=== PATIENT | female | born 1945 ===

== ENCOUNTER 2017-12-23 05:40 | Emergency (ER) | payer MEDICARE, MEDICAID ==
[2017-12-23] MEDS ORDERED: Sodium Chloride 0.9% 500 ML IV STA (06:17)
[2017-12-23] MEDS ORDERED: Iohexol 240 (50 ml) PO STA (06:17)
--- NOTE | 2017-12-23 06:17 | C.PDOC ---
History Of Present Illness <Berta Longo - Last Filed: 12/23/17 06:32> <Jada Leon - Last Filed: 12/23/17 10:13> 72 year old female presents to the ER with a complaint of 3 days of abdominal pain, vomiting, and bloody diarrhea, associated with subjective fever. Patient is currently on plavix, denies any antibiotic use. Denies chest pain, SOB, or dizziness. (Berta Longo) History Per: Patient History/Exam Limitations: no limitations Onset/Duration Of Symptoms: Days Current Symptoms Are (Timing): Still Present Location Of Pain/Discomfort: LUQ, LLQ Radiation Of Pain To:: None Quality Of Discomfort: Unable To Describe Associated Symptoms: Fever (Subjective), Vomiting, Diarrhea (Bloody) Exacerbating Factors: None Alleviating Factors: None Recent travel outside of the [place]: No Abnormal Vaginal Bleeding: No <Berta Longo - Last Filed: 12/23/17 06:32> <Jada Leon - Last Filed: 12/23/17 10:13> Time Seen by Provider: 12/23/17 06:16 Chief Complaint (Nursing): Abdominal Pain Past Medical History Reviewed: Historical Data, Nursing Documentation, Vital Signs - Medical History PMH: CAD, HTN, Hypercholesterolemia, Hypothyroidism, Pancreatitis (cirrhosis) Family History: States: Unknown Family Hx - Social History Hx Tobacco Use: No Hx Alcohol Use: No Hx Substance Use: No - Immunization History Hx Tetanus Toxoid Vaccination: No Hx Influenza Vaccination: Yes Hx Pneumococcal Vaccination: Yes (2015) <Berta Longo - Last Filed: 12/23/17 06:32> Vital Signs: Last Vital Signs Temp 97.8 F 12/23/17 09:42 Pulse 66 12/23/17 09:42 Resp 16 12/23/17 09:42 BP 116/65 12/23/17 09:42 Pulse Ox 98 12/23/17 09:42 - [facility] Procedures INFLUENZA VACCINATION (08/07/14) Review Of Systems Constitutional: Positive for: Fever (Subjective). Negative for: Chills Cardiovascular: Negative for: Chest Pain, Palpitations Respiratory: Negative for: Shortness of Breath Gastrointestinal: Positive for: Vomiting, Abdominal Pain, Diarrhea (Bloody) <Berta Longo - Last Filed: 12/23/17 06:32> Physical Exam - Physical Exam Appears: Non-toxic Skin: Normal Color, Warm, Dry Head: Atraumatic, Normacephalic Eye(s): bilateral: Normal Inspection Oral Mucosa: Moist Chest: Symmetrical, No Tenderness Cardiovascular: Rhythm Regular Respiratory: Normal Breath Sounds, No Rales, No Rhonchi, No Wheezing Gastrointestinal/Abdominal: Soft, Tenderness (LUQ, LLQ), No Guarding, No Rebound Rectal: Other (No stools, no blood) Neurological/Psych: Oriented x3, Normal Speech <Berta Longo - Last Filed: 12/23/17 06:32> ED Course And Treatment O2 Sat by Pulse Oximetry: 99 (Room air) Pulse Ox Interpretation: Normal Progress Note: CT abd/pel, blood work, urinalysis, and occult blood test ordered. Protonix, zofran, and IV fluids administered. <Berta Longo - Last Filed: 12/23/17 06:32> - Laboratory Results Result Diagrams: 12/23/17 06:34 12/23/17 06:34 Lab Interpretation: No Acute Changes - CT Scan/US CT abd.pelvis Other Rad Studies (CT/US): Radiology Report Reviewed CT/US Interpretation: [employer]ist : José Miguel Jimenez MD. Approver2 : Report Date : 12/23/2017 09:36:20. My Comment : . PROCEDURE: CT Abdomen and Pelvis without intravenous contrast. HISTORY: abd pain. COMPARISON: 2015. TECHNIQUE: Without contrast.. Contrast Dose: 0. Radiation dose: Total exam DLP = 935.05 mGy-cm. This CT exam was performed using one or more of the following dose reduction techniques: Automated exposure control, adjustment of the mA and/or kV according to patient size, and/or use of iterative reconstruction technique. FINDINGS: LOWER THORAX: Unremarkable. LIVER: Hepatomegaly. The liver measures 21.2 cm craniocaudal. Nodular contour suggestive of hepatic cirrhosis. Please correlate. No mass. No biliary dilatation. Solitary nodular calcification in the left hepatic lobe, likely granulomatous. GALLBLADDER AND BILE DUCTS: Unremarkable. PANCREAS: Unremarkable. No gross lesion or ductal dilatation. SPLEEN: Normal size. Nodular calcification consistent with old granulomatous disease. No mass. ADRENALS: Unremarkable. No mass. KIDNEYS AND URETERS: Two small adjacent calculi in lower pole right kidney, nonobstructing. These measure approximately 2-3 mm each in diameter. No left renal calculus. No renal mass. No hydronephrosis. VASCULATURE: Unremarkable. No aortic aneurysm. BOWEL: Sigmoid diverticulosis without evidence diverticulitis. No bowel obstruction. No other abnormal bowel loops are appreciated. APPENDIX: Unremarkable. Normal appendix. PERITONEUM: Unremarkable. No free fluid. No free air. LYMPH NODES: Unremarkable. No enlarged lymph nodes. BLADDER: Nondistended. REPRODUCTIVE : Unremarkable postmenopausal uterus. BONES: No acute fracture. Grade 1 anterolisthesis at L4-5 without spondylolysis. Likely degenerative in origin. Degenerative disc disease at L4-5. OTHER FINDINGS: None. IMPRESSION: No acute abnormality. 2 very small nonobstructing calculi in the lower pole right kidney. Sigmoid diverticulosis. Hepatomegaly and possible hepatic cirrhosis. Additional minor findings as above. Progress Note: Pt was sign out to me by Osiel. Blood work, CT abd/plevis w/ PO contrast- pending. Pt reports, came to Ed for evaluation of diffuse abodminal pain, nausea, few episodes of non-bilius/non-bloody vomiting and watery , non-bloody diarrhea 2-3 times dialy for past 3 days, (+) decrease appetite. Pt sts, noted some blood streak on stool. DEnies fever, chills, drooling, CP, SOB, dyspnea, diaphoresis, palpitation, melena, hematemesis, back pain, UTI sx. Pt was OBS in ED for 4.5 hours. On re-evaluation, pt resting comofrtably, not in any apparent distress. Pt reports, mild improvement in sx after ED treatment. Afebrile, hemodynamicaly stable. Non-toxic. Neck: SUpple , (-) JVD, (-) carotid bruits B/L. Lungs: CTA B/L, BS equal B/L. CVS: (+)S1S2 , reg. Abd: benign, (-) guardiong, (-) rebound. Back: (-) CVA tenderness. Blood work review and appears normal, no leukocytosis or left shift. BMP- no electolytes abnormalities. Guiac stool (-). UA- normal study. CT abd/pelvis w/ PO contrast review (+) diverticulosis w/o acute diverticulitis.. Results review and discussed with pt. Pt advised on course of ds, diet restriction. Pt has clinical findings c/w diffuse abd. pain, N/V/D r/o viral illness. Pt ref. to F/U with PMD, GI in 2 days for re-eavl. return to ED if any worsening or new changes. <Jada Leon - Last Filed: 12/23/17 10:13> Disposition - Disposition Disposition Time: 07:00 <Berta Longo - Last Filed: 12/23/17 06:32> Counseled Patient/Family Regarding: Studies Performed, Diagnosis, Need For Followup, Rx Given - Disposition Disposition Time: 10:10 <Jada Leon - Last Filed: 12/23/17 10:13> - Disposition Referrals: Geovany Merida [Staff Provider] - Disposition: HOME/ ROUTINE Condition: STABLE Additional Instructions: Encourage fluids Take medication as prescribed Follow up with PMD and GI in 2 days for re-evaluation without fail. return to ED if any worsening or new changes. Prescriptions: Ciprofloxacin [Cipro] 1 tab PO BID #14 tab metroNIDAZOLE [Flagyl] 500 mg PO BID #14 tab Ondansetron ODT [Zofran ODT] 1 odt PO BID PRN #8 odt PRN Reason: Nausea/Vomiting Instructions: Stomach Ache and Stomach Upset, Nausea and Vomiting, Adult (DC) Forms: [employer] (Vietnamese) Print Language: FAROESE - Clinical Impression Clinical Impression: Nausea, Vomiting, Abdominal pain - PA / [facility] / Resident Statement MD/DO has reviewed & agrees with the documentation as recorded. - Scribe Statement The provider has reviewed the documentation as recorded by the Scribe <Berta Longo - Last Filed: 12/23/17 06:32> <Jada Leon - Last Filed: 12/23/17 10:13> - Scribe Statement Mekhi Harrington All medical record entries made by the Scribe were at my direction and personally dictated by me. I have reviewed the chart and agree that the record accurately reflects my personal performance of the history, physical exam, medical decision making, and the department course for this patient. I have also personally directed, reviewed, and agree with the discharge instructions and disposition. (Berta Longo) Physician Patient Turnover Patient Signed Over To: Jada Leon Handoff Comments: Pending labs, CT, dispo <Berta Longo - Last Filed: 12/23/17 06:32>
[2017-12-23] MEDS ORDERED: Iohexol 240 (50 ml) ONE (06:28)
[2017-12-23] MEDS ORDERED: Sodium Chloride 0.9% 1,000 ML ONE (06:29)
[2017-12-23 06:40] LABS: INR 1.1
[2017-12-23 06:41] LABS: BASO % 0.4 % (0.0-2.0); EOS # 0.2 K/uL (0.0-0.7); EOS % 2.2 % (0.0-4.0); HEMOGLOBIN 12.8 g/dL (11.0-16.0); LYMPH # 3.2 K/uL (1.0-4.3); LYMPH % 35.3 % (20.0-40.0); MEAN CORPUSCULAR HEMOGLOBIN 29.4 pg (27.0-31.0); MEAN CORPUSCULAR HGB CONC 34.2 g/dL (33.0-37.0); MEAN PLATELET VOLUME 11.8 fL (7.2-11.7); MONO # 0.5 K/uL (0.0-0.8); MONO % 5.4 % (0.0-10.0); NEUT # 5.2 K/uL (1.8-7.0); NEUT % 56.7 % (50.0-75.0); NRBC % 0.1 % (0.0-2.0); RBC 4.37 Mil/uL (3.80-5.20); RED CELL DISTRIBUTION WIDTH 13.5 % (11.5-14.5); WHITE BLOOD COUNT 9.2 K/uL (4.8-10.8)
[2017-12-23 06:45] LABS: ALB/GLOB RATIO 1.4 (1.0-2.1); ALBUMIN 3.9 g/dL (3.5-5.0); ALT/SGPT 75 U/L (9-52); AST/SGOT 62 U/L (14-36); BLOOD UREA NITROGEN 14 mg/dL (7-17); CALCIUM 8.8 mg/dl (8.6-10.4); GFR AFRICAN-AMERICAN > 60; GFR NON-AFRICAN AMERICAN > 60; LIPASE 64 U/L (23-300)
[2017-12-23 08:36] LABS: SQUAMOUS EPITHIAL < 1 /hpf (0-5); URINE BACTERIA RARE (<OCC); URINE BILIRUBIN NEGATIVE (NEGATIVE); URINE BLOOD 1+ (NEGATIVE); URINE CLARITY Clear (Clear); URINE COLOR Colorless (YELLOW); URINE GLUCOSE (UA) NORMAL (Normal); URINE LEUKOCYTE ESTERASE NEG Leu/uL (Negative); URINE PROTEIN NEGATIVE (NEGATIVE); URINE UROBILINOGEN NORMAL mg/dL (0.2-1.0)
--- NOTE | 2017-12-23 09:37 | CT ---
PROCEDURE: CT Abdomen and Pelvis without intravenous contrast HISTORY: abd pain COMPARISON: 08/21/2016 TECHNIQUE: Without contrast.. Contrast Dose: 0 Radiation dose: Total exam DLP = 935.05 mGy-cm. This CT exam was performed using one or more of the following dose reduction techniques: Automated exposure control, adjustment of the mA and/or kV according to patient size, and/or use of iterative reconstruction technique. FINDINGS: LOWER THORAX: Unremarkable. LIVER: Hepatomegaly. The liver measures 21.2 cm craniocaudal. Nodular contour suggestive of hepatic cirrhosis. Please correlate. No mass. No biliary dilatation. Solitary nodular calcification in the left hepatic lobe, likely granulomatous. GALLBLADDER AND BILE DUCTS: Unremarkable. PANCREAS: Unremarkable. No gross lesion or ductal dilatation. SPLEEN: Normal size. Nodular calcification consistent with old granulomatous disease. No mass. ADRENALS: Unremarkable. No mass. KIDNEYS AND URETERS: Two small adjacent calculi in lower pole right kidney, nonobstructing. These measure approximately 2-3 mm each in diameter. No left renal calculus. No renal mass. No hydronephrosis. VASCULATURE: Unremarkable. No aortic aneurysm. BOWEL: Sigmoid diverticulosis without evidence diverticulitis. No bowel obstruction. No other abnormal bowel loops are appreciated. APPENDIX: Unremarkable. Normal appendix. PERITONEUM: Unremarkable. No free fluid. No free air. LYMPH NODES: Unremarkable. No enlarged lymph nodes. BLADDER: Nondistended REPRODUCTIVE: Unremarkable postmenopausal uterus BONES: No acute fracture. Grade 1 anterolisthesis at L4-5 without spondylolysis. Likely degenerative in origin. Degenerative disc disease at L4-5 OTHER FINDINGS: None. IMPRESSION: No acute abnormality. 2 very small nonobstructing calculi in the lower pole right kidney. Sigmoid diverticulosis. Hepatomegaly and possible hepatic cirrhosis. Additional minor findings as above.
[2017-12-23 09:43] VITALS: RESP 16; TEMP 97.8; O2SAT 98
[2017-12-23 11:01] VITALS: BP 126/64; PULSE 68
== END 2017-12-23 11:30 | disposition home or self-care (01) ==
LOC: C.ER 05:40
DX: R10.12 Left upper quadrant pain (principal); R10.32 Left lower quadrant pain; R11.2 Nausea with vomiting, unspecified
CPT/HCPCS: 74176; 80053; 81001; 83690; 85025; 85610; 85730; 96361; 96374; 96375; 96376; 99285; C9113; G0328; J1885; J2405; J7040; Q9966

== ENCOUNTER 2018-03-01 14:20 | Emergency (ER) | payer MEDICARE, MEDICAID ==
[2018-03-01 14:40] VITALS: O2SAT 96
[2018-03-01] MEDS ORDERED: Sodium Chloride 0.9% 1,000 ML IV ONE (14:57)
[2018-03-01 15:12] LABS: BASO % 0.4 % (0.0-2.0); EOS # 0.1 K/uL (0.0-0.7); EOS % 1.7 % (0.0-4.0); HEMOGLOBIN 12.5 g/dL (11.0-16.0); LYMPH # 2.4 K/uL (1.0-4.3); LYMPH % 29.3 % (20.0-40.0); MEAN CELL VOLUME 85.5 fL (81.0-99.0); MEAN CORPUSCULAR HEMOGLOBIN 28.8 pg (27.0-31.0); MEAN CORPUSCULAR HGB CONC 33.7 g/dL (33.0-37.0); MEAN PLATELET VOLUME 11.3 fL (7.2-11.7); MONO # 0.5 K/uL (0.0-0.8); MONO % 5.6 % (0.0-10.0); NEUT # 5.2 K/uL (1.8-7.0); RBC 4.33 Mil/uL (3.80-5.20); RED CELL DISTRIBUTION WIDTH 13.3 % (11.5-14.5); WHITE BLOOD COUNT 8.3 K/uL (4.8-10.8)
[2018-03-01] MEDS ORDERED: Sodium Chloride 0.9% 1,000 ML ONE (15:14)
--- NOTE | 2018-03-01 15:24 | C.PDOC ---
History Of Present Illness 72 y/o female presents to the ED complaining of crampy left epigastric pain for 3 days. Patient has had many presentations to this ED for the same. No associated fevers, vomiting, or diarrhea. She denies taking any medications at home for symptom relief. Time Seen by Provider: 03/01/18 14:51 Chief Complaint (Nursing): Abdominal Pain History Per: Patient History/Exam Limitations: no limitations Onset/Duration Of Symptoms: Days Current Symptoms Are (Timing): Still Present Past Medical History Reviewed: Historical Data, Nursing Documentation, Vital Signs Vital Signs: Last Vital Signs Temp 98.1 F 03/01/18 14:38 Pulse 71 03/01/18 14:38 Resp 20 03/01/18 14:38 BP 107/56 L 03/01/18 14:38 Pulse Ox 96 03/01/18 15:27 - Medical History PMH: CAD, HTN, Hypercholesterolemia, Hypothyroidism, Pancreatitis (cirrhosis) Denies: Chronic Kidney Disease Surgical History: No Surg Hx - [facility] Procedures INFLUENZA VACCINATION (08/07/14) Family History: States: Unknown Family Hx - Social History Hx Tobacco Use: No Hx Alcohol Use: No Hx Substance Use: No - Immunization History Hx Tetanus Toxoid Vaccination: No Hx Influenza Vaccination: Yes Hx Pneumococcal Vaccination: Yes (2016) Review Of Systems Except As Marked, All Systems Reviewed And Found Negative. Constitutional: Negative for: Fever, Chills Gastrointestinal: Positive for: Abdominal Pain. Negative for: Vomiting, Diarrhea Physical Exam - Physical Exam Appears: Non-toxic, No Acute Distress Skin: Normal Color, Warm, Dry Head: Atraumatic, Normacephalic Eye(s): bilateral: Normal Inspection, PERRL, EOMI Oral Mucosa: Moist Neck: Normal ROM, Supple Cardiovascular: Rhythm Regular, No Murmur Respiratory: Normal Breath Sounds, No Rales, No Rhonchi, No Wheezing Gastrointestinal/Abdominal: Bowel Sounds (Dull to percussion at the LUQ), Soft, Tenderness (to epigastrium) Extremity: Bilateral: Atraumatic, No Pedal Edema, Normal Color And Temperature Neurological/Psych: Oriented x3, Normal Speech, Other (No focal deficits) ED Course And Treatment - Laboratory Results Result Diagrams: 03/01/18 15:07 03/01/18 15:07 Lab Interpretation: Normal (trop neg) ECG: Interpreted By Me ECG Rhythm: Sinus Rhythm ECG Interpretation: Normal Rate From EC O2 Sat by Pulse Oximetry: 96 (RA) Pulse Ox Interpretation: Normal - Radiology CXR: Interpreted by Me CXR Interpretation: Yes: No Acute Disease - Other Rad abd x 2 X-Ray: Interpreted by Me (+FOS) Medical Decision Making Medical Decision Making: Time: 14:57 Initial Plan: --EKG --CMP --Lipase --Troponin I --CBC --X-ray obstructive series --Urinalysis --IV fluids --30 mg Toradol IVP chronic constipation NO atypical NV- epigastric discomfort and normal EKG with neg trop Disposition Doctor Will See Patient In The: Office Counseled Patient/Family Regarding: Studies Performed, Diagnosis - Disposition Disposition: HOME/ ROUTINE Disposition Time: 15:50 Condition: GOOD Forms: [employer] (Malian) - Clinical Impression Clinical Impression: Colicky LUQ abdominal pain - Scribe Statement The provider has reviewed the documentation as recorded by the Christineibomar Parker Provider Attestation: All medical record entries made by the Christineibomar were at my direction and personally dictated by me. I have reviewed the chart and agree that the record accurately reflects my personal performance of the history, physical exam, medical decision making, and the department course for this patient. I have also personally directed, reviewed, and agree with the discharge instructions and disposition.
[2018-03-01 15:27] LABS: ALB/GLOB RATIO 1.1 (1.0-2.1); ALBUMIN 3.8 g/dL (3.5-5.0); ALT/SGPT 104 U/L (9-52); AST/SGOT 173 U/L (14-36); BLOOD UREA NITROGEN 27 mg/dL (7-17); CALCIUM 9.2 mg/dl (8.6-10.4); GFR AFRICAN-AMERICAN 59; GFR NON-AFRICAN AMERICAN 49; LIPASE 92 U/L (23-300)
[2018-03-01 16:09] VITALS: BP 110/66; PULSE 66; RESP 18; TEMP 97.7
--- NOTE | 2018-03-01 19:05 | RAD ---
PROCEDURE: Radiographs of the chest and abdomen (obstructive series) HISTORY: abd pain COMPARISON: No prior. TECHNIQUE: AP radiograph of the chest, with upright and supine radiographs of the abdomen. FINDINGS: CHEST: Lungs: Clear. Cardiovascular: Mild cardiomegaly not excluded. No pulmonary vascular derangement evident. Pleura: No pleural fluid. No pneumothorax. Other findings: None. ABDOMEN AND PELVIS: Bowel: Unremarkable bowel gas pattern. No evidence of mechanical obstruction. Free air: None. Bones: Unremarkable. Other findings: Punctate calcifications seen over the overlying the left psoas muscle inferiorly of uncertain origin. IMPRESSION: No mechanical bowel obstruction appreciable. Small calcifications seen overlying the inferior margins of the left psoas muscle of uncertain origin. No definite free intraperitoneal gas.
--- NOTE | 2018-03-03 02:56 | CARD ---
APPROVED REPORT EKG Measurement Heart [id number] [place] [id number] <Conclusion> Normal sinus rhythm Normal ECG
== END 2018-03-01 16:40 | disposition home or self-care (01) ==
LOC: C.ER 14:20
DX: R10.12 Left upper quadrant pain (principal); R10.84 Generalized abdominal pain; E03.9 Hypothyroidism, unspecified; E78.00 Pure hypercholesterolemia, unspecified; I10 Essential (primary) hypertension; I25.10 Atherosclerotic heart disease of native coronary artery without angina pectoris
CPT/HCPCS: 74022; 80053; 83690; 84484; 85025; 93005; 96361; 96374; 99283; J1885; J7040

== ENCOUNTER 2018-04-23 11:04 | Emergency (ER) | payer MEDICARE, MEDICAID ==
[2018-04-23 12:24] LABS: BASO # 0.1 K/uL (0.0-0.2); BASO % 0.7 % (0.0-2.0); EOS # 0.3 K/uL (0.0-0.7); EOS % 3.3 % (0.0-4.0); HEMOGLOBIN 12.7 g/dL (11.0-16.0); LYMPH # 2.8 K/uL (1.0-4.3); MEAN CELL VOLUME 83.9 fL (81.0-99.0); MEAN CORPUSCULAR HEMOGLOBIN 28.7 pg (27.0-31.0); MEAN CORPUSCULAR HGB CONC 34.2 g/dL (33.0-37.0); MEAN PLATELET VOLUME 11.4 fL (7.2-11.7); MONO # 0.5 K/uL (0.0-0.8); MONO % 6.6 % (0.0-10.0); NEUT # 4.1 K/uL (1.8-7.0); NEUT % 53.4 % (50.0-75.0); NRBC % 0.1 % (0.0-2.0); RBC 4.41 Mil/uL (3.80-5.20); RED CELL DISTRIBUTION WIDTH 13.9 % (11.5-14.5); WHITE BLOOD COUNT 7.8 K/uL (4.8-10.8)
[2018-04-23 12:27] LABS: URINE BILIRUBIN NEGATIVE (NEGATIVE); URINE CLARITY Clear (Clear); URINE COLOR Yellow (YELLOW); URINE GLUCOSE (UA) NORMAL (Normal); URINE LEUKOCYTE ESTERASE NEG Leu/uL (Negative); URINE PROTEIN NEGATIVE (NEGATIVE); URINE UROBILINOGEN NORMAL mg/dL (0.2-1.0)
[2018-04-23 12:31] LABS: INR 1.1; PROTHROMBIN TIME 12.4 SECONDS (9.7-12.2)
[2018-04-23 12:34] LABS: URINE BLOOD NEGATIVE (NEGATIVE)
[2018-04-23 12:40] LABS: ALB/GLOB RATIO 1.4 (1.0-2.1); ALBUMIN 4.2 g/dL (3.5-5.0); ALT/SGPT 59 U/L (9-52); AST/SGOT 77 U/L (14-36); BLOOD UREA NITROGEN 16 mg/dL (7-17); CALCIUM 9.8 mg/dl (8.6-10.4); GFR AFRICAN-AMERICAN > 60; GFR NON-AFRICAN AMERICAN > 60
[2018-04-23 12:53] LABS: B-TYPE NATRIURETIC PEPTIDE 85.9 pg/mL (0-900)
--- NOTE | 2018-04-23 12:53 | RAD ---
Date of service: 04/23/2018 PROCEDURE: CHEST RADIOGRAPH, 1 VIEW HISTORY: SOB COMPARISON: 03/22/2017 FINDINGS: LUNGS: Clear. PLEURA: No pneumothorax or pleural fluid seen. CARDIOVASCULAR: Normal. OSSEOUS STRUCTURES: No significant abnormalities. VISUALIZED UPPER ABDOMEN: Normal. OTHER FINDINGS: None. IMPRESSION: No active disease.
--- NOTE | 2018-04-23 13:13 | C.PDOC ---
History Of Present Illness 72 year old female presents to the ER with a complaint of abdominal distention for the past 8 days, associated with nausea, vomiting, generalized weakness, and leg cramping/swelling. Denies diarrhea, chest pain, or SOB. Time Seen by Provider: 04/23/18 11:45 Chief Complaint (Nursing): Abdominal Pain History Per: Patient History/Exam Limitations: no limitations Onset/Duration Of Symptoms: Days Current Symptoms Are (Timing): Still Present Radiation Of Pain To:: None Quality Of Discomfort: Unable To Describe Associated Symptoms: denies: Diarrhea, Chest Pain, Other (SOB) Exacerbating Factors: None Alleviating Factors: None Recent travel outside of the [place]: No Abnormal Vaginal Bleeding: No Past Medical History Reviewed: Historical Data, Nursing Documentation, Vital Signs Vital Signs: Last Vital Signs Temp 98.2 F 04/23/18 11:18 Pulse 75 04/23/18 11:18 Resp 18 04/23/18 11:18 BP 123/70 04/23/18 11:18 Pulse Ox 98 04/23/18 15:20 - Medical History PMH: CAD, HTN, Hypercholesterolemia, Hypothyroidism, Pancreatitis (cirrhosis) - [facility] Procedures INFLUENZA VACCINATION (08/07/14) Family History: States: Unknown Family Hx - Social History Hx Tobacco Use: No Hx Alcohol Use: No Hx Substance Use: No - Immunization History Hx Tetanus Toxoid Vaccination: No Hx Influenza Vaccination: Yes Hx Pneumococcal Vaccination: Yes (2016) Review Of Systems Except As Marked, All Systems Reviewed And Found Negative. Gastrointestinal: Positive for: Other (Abdominal distention) Physical Exam - Physical Exam Appears: Non-toxic Skin: Normal Color, Warm, Dry Head: Atraumatic, Normacephalic Eye(s): bilateral: Normal Inspection Oral Mucosa: Moist Neck: Normal, Supple Chest: Symmetrical, No Tenderness Cardiovascular: Rhythm Regular Respiratory: Normal Breath Sounds, No Rales, No Rhonchi, No Wheezing Gastrointestinal/Abdominal: Bowel Sounds (Positive), Soft, No Tenderness, Distention (Not tense) Extremity: Pedal Edema (+1 pitting) Neurological/Psych: Oriented x3, Normal Speech ED Course And Treatment - Laboratory Results Result Diagrams: 04/23/18 12:18 04/23/18 12:18 O2 Sat by Pulse Oximetry: 98 (Room air) Pulse Ox Interpretation: Normal Medical Decision Making Medical Decision Making: Assessment: Abdominal distention Plan: * CT abd/pel * Blood work * CXR * Urinalysis * Zofran * Doppler Work up including US was negative, results discussed with patient. Advised patient to follow up with her GI and PMD in 2 days. Disposition Counseled Patient/Family Regarding: Studies Performed, Diagnosis, Need For Followup, Rx Given - Disposition Referrals: Lon Linares MD [Staff Provider] - Geovany Merida [Staff Provider] - Disposition: HOME/ ROUTINE Disposition Time: 15:17 Condition: STABLE Additional Instructions: you need to see both your doctor within 2 days call today to make an appointment continue you home medications return to ER if symptoms worsens or progress Prescriptions: Famotidine [Pepcid] 20 mg PO BID #20 tab Naproxen [Naprosyn] 500 mg PO BID PRN #16 tab PRN Reason: Pain, Moderate (4-7) Ondansetron ODT [Zofran ODT] 4 mg PO TID PRN #12 odt PRN Reason: Nausea/Vomiting Instructions: Acute Abdomen (Belly Pain), Adult (DC) Forms: [employer] (German), Gen Discharge Inst German Print Language: ARMENIAN - Clinical Impression Clinical Impression: Abdominal pain - Scribe Statement The provider has reviewed the documentation as recorded by the Scribomar Harrington All medical record entries made by the Scribe were at my direction and personally dictated by me. I have reviewed the chart and agree that the record accurately reflects my personal performance of the history, physical exam, medical decision making, and the department course for this patient. I have also personally directed, reviewed, and agree with the discharge instructions and disposition.
[2018-04-23] MEDS ORDERED: Iodixanol 320 MG/ML 100 ML BOTTLE IV ONE (13:38)
--- NOTE | 2018-04-23 14:32 | CT ---
Date of service: 04/23/2018 PROCEDURE: CT Abdomen and Pelvis with contrast HISTORY: abd. distention COMPARISON: CT scan of the abdomen pelvis dated 12/23/2017. TECHNIQUE: Contrast dose: 100 mL Visipaque 320 Radiation dose: Total exam DLP = 975.6 mGy-cm. This CT exam was performed using one or more of the following dose reduction techniques: Automated exposure control, adjustment of the mA and/or kV according to patient size, and/or use of iterative reconstruction technique. FINDINGS: LOWER THORAX: Cardiomegaly. No focal consolidation or pleural effusion. Stable 3 mm medial right lower lobe nodule. LIVER: Hepatic steatosis. Tiny too small to characterize right hepatic lobe hypodensities (series 3, images 37 and 47). Questionable nodular contour. Punctate calcified granuloma. No ductal dilatation. GALLBLADDER AND BILE DUCTS: Unremarkable. PANCREAS: Fatty replacement. No gross lesion or ductal dilatation. SPLEEN: Unremarkable. Punctate calcified granuloma. ADRENALS: Unremarkable. No mass. KIDNEYS AND URETERS: Nonobstructive punctate right lower lobe calculus. No hydronephrosis. No solid mass. VASCULATURE: Calcific atherosclerosis. No aortic aneurysm. BOWEL: Colonic diverticulosis. No obstruction. No gross mural thickening. APPENDIX: Normal appendix. PERITONEUM: Tiny fat containing umbilical hernia. No free fluid. No free air. LYMPH NODES: Unremarkable. No enlarged lymph nodes. BLADDER: Unremarkable. REPRODUCTIVE: Unremarkable. BONES: No acute fracture. Multilevel degenerative changes. Grade 1 anterolisthesis of L4 on L5. OTHER FINDINGS: None. IMPRESSION: No acute abdominal pelvic pathology. Multiple stable findings as above.
[2018-04-23 15:37] VITALS: BP 105/52; PULSE 70; RESP 20; TEMP 98.6; O2SAT 97
--- NOTE | 2018-04-24 17:49 | CARD ---
APPROVED REPORT Date of service: 04/23/2018 EKG Measurement Heart [id number] NM 110P [id number] <Conclusion> Sinus rhythm with short NM Otherwise normal ECG
--- NOTE | 2018-04-25 11:00 | VASCLAB ---
Date of service: 04/23/2018 PROCEDURE: Lower Extremity Venous Duplex Exam. HISTORY: leg pain PRIORS: None. TECHNIQUE: Bilateral common femoral, femoral, popliteal and posterior tibial, peroneal and great saphenous veins were evaluated. Flow was assessed with color Doppler, compressibility, assessment of phasic flow and augmentation response. Report prepared by Mekhi Cope, DEXTER, RVT FINDINGS: RIGHT: 1. Common Femoral Vein: 1.1. Compressibility - Fully compressible: Thrombus - None : Flow - Phasic: Augmentation -Normal: Reflux - None. 2. Femoral Vein: 2.1. Compressibility - Fully compressible: Thrombus - None : Flow - Phasic: Augmentation -Normal: Reflux - None. 3. Popliteal Vein: 3.1. Compressibility - Fully compressible: Thrombus - None : Flow - Phasic: Augmentation -Normal: Reflux - Yes. 4. Posterior Tibial Vein: 4.1. Compressibility - Fully compressible: Thrombus - None: Flow - Phasic: Augmentation -Normal: Reflux - None. 5. Peroneal Vein: 5.1. Compressibility - Fully compressible: Thrombus - None: Flow - Phasic: Augmentation -Normal: Reflux - Yes. 6. Great Saphenous Vein: 6.1. Compressibility - Fully compressible: Thrombus - None: Flow - Phasic: Augmentation - Normal: Reflux - None. LEFT: 1. Common Femoral Vein: 1.1. Compressibility - Fully compressible: Thrombus - None: Flow - Phasic: Augmentation -Normal: Reflux - None. 2. Femoral Vein: 2.1. Compressibility - Fully compressible: Thrombus - None: Flow - Phasic: Augmentation -Normal: Reflux - None. 3. Popliteal Vein: 3.1. Compressibility - Fully compressible: Thrombus - None : Flow - Phasic: Augmentation -Normal: Reflux - Yes. 4. Posterior Tibial Vein: 4.1. Compressibility - Fully compressible: Thrombus - None: Flow - Phasic: Augmentation -Normal: Reflux - None. 5. Peroneal Vein: 5.1. Compressibility - Fully compressible: Thrombus - None: Flow - Phasic: Augmentation -Normal: Reflux - None. 6. Great Saphenous Vein: 6.1. Compressibility - Fully compressible: Thrombus - None: Flow - Phasic: Augmentation - Normal: Reflux - None. OTHER FINDINGS: Right: None significant. Left: None significant. IMPRESSION: Right: No evidence of deep or superficial vein thrombosis of the right lower extremity. Valvular incompetence of the right popliteal and peroneal veins. Left: No evidence of deep or superficial vein thrombosis of the left lower extremity.
== END 2018-04-23 15:42 | disposition home or self-care (01) ==
LOC: C.ER 11:04
DX: R10.9 Unspecified abdominal pain (principal)
CPT/HCPCS: 71045; 74177; 80053; 81001; 83880; 84484; 85025; 85610; 85730; 93005; 93970; 96374; 99285; J2405; Q9967

== ENCOUNTER 2018-05-27 08:16 | Observation (INO) | payer MEDICARE, MEDICAID ==
[2018-05-27 08:31] VITALS: BMI 30.2
--- NOTE | 2018-05-27 09:25 | C.PDOC ---
History Of Present Illness 72 y/o female presents to ED for complaints of shortness of breath associated with generalized weakness and chest pain that radiates to left hands that began 2 weeks ago. Patient states symptoms were sudden onset. Denies seeing her PMD, medication use for relief, smoking, or any other physical complaints. Patient has PMHx of CAD, HTN and Thyroid. PMD: Dr Ronnie Ospina - [facility] Time Seen by Provider: 05/27/18 08:34 Chief Complaint (Nursing): Shortness Of Breath History Per: Patient History/Exam Limitations: no limitations Onset/Duration Of Symptoms: Days (14) Current Symptoms Are (Timing): Still Present Current Respiratory Medications: See Home Med List Associated Symptoms: Chest Pain. denies: Fever, Chills Recent travel outside of the [place]: No Past Medical History Reviewed: Historical Data, Nursing Documentation, Vital Signs Vital Signs: Last Vital Signs Temp 97.3 F L 05/27/18 08:24 Pulse 79 05/27/18 08:24 Resp 18 05/27/18 08:30 BP 131/75 05/27/18 08:24 Pulse Ox 99 05/27/18 10:30 - Medical History PMH: CAD, Gall Bladder Disease, HTN, Hypercholesterolemia, Hypothyroidism, Pancreatitis (cirrhosis) - [facility] Procedures INFLUENZA VACCINATION (08/07/14) Family History: States: Unknown Family Hx - Social History Hx Tobacco Use: No Hx Alcohol Use: No Hx Substance Use: No - Immunization History Hx Tetanus Toxoid Vaccination: No Hx Influenza Vaccination: No Hx Pneumococcal Vaccination: No Review Of Systems Constitutional: Positive for: Weakness. Negative for: Fever, Chills Cardiovascular: Positive for: Chest Pain (RAdiated to left hands ). Negative for: Palpitations Respiratory: Positive for: Shortness of Breath. Negative for: Cough Gastrointestinal: Negative for: Nausea, Vomiting, Abdominal Pain, Diarrhea Skin: Negative for: Rash Neurological: Negative for: Weakness, Numbness Physical Exam - Physical Exam Appears: Non-toxic, In Acute Distress (Mild), Other (Uncomfortable ) Skin: Normal Color, Warm, Dry, No Rash Head: Atraumatic, Normacephalic Eye(s): bilateral: Normal Inspection, PERRL, EOMI Oral Mucosa: Moist Throat: Normal, No Erythema, No Exudate, No Drooling, No Mass Neck: Supple Chest: Symmetrical, No Tenderness Cardiovascular: Rhythm Regular, No Murmur Respiratory: Normal Breath Sounds, No Decreased Breath Sounds, No Rales, No Rhonchi, No Wheezing, Other (Mild Respiratory ) Gastrointestinal/Abdominal: Normal Exam, Soft, No Tenderness, No Distention Extremity: Normal ROM, No Tenderness, No Pedal Edema, No Deformity Extremity: Bilateral: Atraumatic, Normal Color And Temperature, Normal ROM Pulses: Left Dorsalis Pedis: Normal, Right Dorsalis Pedis: Normal Neurological/Psych: Oriented x3, Normal Speech (Speaking in full sentences ), Other (No focal deficits ) Gait: Steady ED Course And Treatment - Laboratory Results Result Diagrams: 05/27/18 09:18 05/27/18 09:18 ECG: Interpreted By Me (Dr Smith), Viewed By Me ECG Rhythm: Sinus Rhythm Rate From EC O2 Sat by Pulse Oximetry: 99 (RA) Pulse Ox Interpretation: Normal - Other Rad CXR X-Ray: Viewed By Me, Read By Radiologist Interpretation: Chest x-ray single frontal view. History: Shortness of breath. Comparison: 04/23/2018. Findings: Biapical pleural thickening with upper lobe granulomatous changes. Diffuse increased interstitial lung markings. Cardiomegaly. Enlarged ectatic aorta. Nodular density at the right lung base medially. Clinical correlation. Degenerative changes in the spine and shoulders. Impression: Biapical pleural thickening with upper lobe granulomatous changes. Diffuse increased interstitial lung markings. Cardiomegaly. Enlarged ectatic aorta. Nodular density at the right lung base medially. Clinical correlation. Progress Note: Ordered blood work, CXR, and urinalysis. 10:20AM -Case discussed with Dr. Olsen and agreed for admission. Disposition - Disposition - PA / BRAILLE CODER / Resident Statement MD/DO has reviewed & agrees with the documentation as recorded. - Scribe Statement The provider has reviewed the documentation as recorded by the Christineibomar Prakash All medical record entries made by the Christineibomar were at my direction and personally dictated by me. I have reviewed the chart and agree that the record accurately reflects my personal performance of the history, physical exam, medical decision making, and the department course for this patient. I have also personally directed, reviewed, and agree with the discharge instructions and disposition.
[2018-05-27 09:26] LABS: BASO % 0.4 % (0.0-2.0); EOS # 0.1 K/uL (0.0-0.7); EOS % 1.8 % (0.0-4.0); HEMOGLOBIN 12.2 g/dL (11.0-16.0); LYMPH # 2.5 K/uL (1.0-4.3); LYMPH % 34.5 % (20.0-40.0); MEAN CELL VOLUME 84.5 fL (81.0-99.0); MEAN CORPUSCULAR HEMOGLOBIN 28.4 pg (27.0-31.0); MEAN CORPUSCULAR HGB CONC 33.6 g/dL (33.0-37.0); MEAN PLATELET VOLUME 10.9 fL (7.2-11.7); MONO # 0.4 K/uL (0.0-0.8); MONO % 5.7 % (0.0-10.0); NEUT # 4.2 K/uL (1.8-7.0); NEUT % 57.6 % (50.0-75.0); RBC 4.31 Mil/uL (3.80-5.20); RED CELL DISTRIBUTION WIDTH 14.1 % (11.5-14.5); WHITE BLOOD COUNT 7.3 K/uL (4.8-10.8)
[2018-05-27 09:40] LABS: ALB/GLOB RATIO 1.2 (1.0-2.1); ALBUMIN 4.1 g/dL (3.5-5.0); ALT/SGPT 63 U/L (9-52); AST/SGOT 82 U/L (14-36); BLOOD UREA NITROGEN 11 mg/dL (7-17); CALCIUM 9.8 mg/dl (8.6-10.4); GFR AFRICAN-AMERICAN > 60; GFR NON-AFRICAN AMERICAN > 60
[2018-05-27 09:43] LABS: INR 1.1; PARTIAL THROMBOPLASTIN TIME 32 SECONDS (21-34); PROTHROMBIN TIME 12.1 SECONDS (9.7-12.2)
[2018-05-27 09:44] LABS: D DIMER < 200 ng/mlDDU (0-243)
[2018-05-27] MEDS ORDERED: Albuterol 0.083% Inhal Sol (2.5 mg/3 mL) UD INH STA (09:44)
[2018-05-27] MEDS ORDERED: Albuterol 0.083% Inhal Sol (2.5 mg/3 mL) UD ONE (09:49)
[2018-05-27 09:50] LABS: B-TYPE NATRIURETIC PEPTIDE 69.1 pg/mL (0-900); CK-MB 0.41 ng/mL (0.0-3.38)
--- NOTE | 2018-05-27 10:04 | RAD ---
Chest x-ray single frontal view History: Shortness of breath. Comparison: 04/23/2018 Findings: Biapical pleural thickening with upper lobe granulomatous changes. Diffuse increased interstitial lung markings. Cardiomegaly. Enlarged ectatic aorta. Nodular density at the right lung base medially. Clinical correlation. Degenerative changes in the spine and shoulders. Impression: Biapical pleural thickening with upper lobe granulomatous changes. Diffuse increased interstitial lung markings. Cardiomegaly. Enlarged ectatic aorta. Nodular density at the right lung base medially. Clinical correlation.
[2018-05-27 11:05] LABS: SQUAMOUS EPITHIAL < 1 /hpf (0-5); URINE BILIRUBIN NEGATIVE (NEGATIVE); URINE BLOOD 1+ (NEGATIVE); URINE CLARITY Clear (Clear); URINE COLOR Yellow (YELLOW); URINE GLUCOSE (UA) NORMAL (Normal); URINE LEUKOCYTE ESTERASE NEG Leu/uL (Negative); URINE PROTEIN NEGATIVE (NEGATIVE); URINE UROBILINOGEN NORMAL mg/dL (0.2-1.0)
--- NOTE | 2018-05-27 11:37 | CP.PCM.HP ---
<BaltazarSherrie jimenez DO - Last Filed: 05/27/18 13:45> History of Present Illness - History of Present Illness History of Present Illness: Patient is a 72 year old female with past medical history of hypertension, elevated cholesterol, tachycardia, hypothyroidism, gastritis who presents to the ED with complaint of dyspnea for past 6 days and chest pain for past 3 days. She also complains of diffuse body aches and muscle cramps, most strong in her left thigh. She reports left arm pain but denies numbness. She reports complaint of bilateral leg swelling as well. Patient was previously evaluated in the ED on 04/23/18 for complaint of stomach pain as well as leg pain /cramps. Lower extremity dopplers were negative for DVT at that time. She had abdominal CT at that time which showed hepatic steatosis, small hypodensities, colonic diverticulosis, grade 1 anterolisthesis L4 on L5. Patient was discharged at that time with pepcid and zofran. Patient reports she is still having abdominal cramping. She reports vomiting twice yesterday, and also reports stomach bloating. She reports room spinning and light-headed feeling. She reports decreased appetite for three days. She admits to exertional dyspnea and can only walk 2-3 blocks without stopping. She reports difficulty sleeping recently because she does not want to lay flat. PMD: Dr. Merida PMHx: HTN, tachycardia (denies a-fib), hyperlipidemia, hypothyroidism, gastritis Meds: crestor 20mg HS, potassium citrate 10meQ, losartan/HCTZ 100-25, imdur 120mg, asa 81mg, gabapentin 100mg daily, levothyroxine 50mcg, protonix 40mg, vitamin E 400unit, vitamin D 50,000 Qwk, simethicone 125mg HS prn PSHx: denies FamHx: denies SocialHx: denies tobacco (ever), denies alcohol or drug use; lives with , denies use of cane or assistive device Present on Admission - Present on Admission Any Indicators Present on Admission: No Review of Systems - Constitutional Constitutional: Weakness. absent: Chills, Fever - EENT Ears: Dizziness Nose/Mouth/Throat: Epistaxis - Cardiovascular Cardiovascular: Chest Pain, Dyspnea, Dyspnea on Exertion, Edema, Leg Edema, Lightheadedness, Orthopnea, Palpitations, Rapid Heart Rate - Respiratory Respiratory: Cough - Gastrointestinal Gastrointestinal: Bloating, Cramping, Nausea, Vomiting. absent: Diarrhea, Hematemesis, Hematochezia - Genitourinary Genitourinary: absent: Difficulty Urinating, Dysuria - Musculoskeletal Musculoskeletal: absent: Back Pain - Integumentary Integumentary: absent: Rash - Neurological Neurological: Dizziness - Endocrine Endocrine: Fatigue, Palpitations Past Patient History - Past Medical History & Family History Past Medical History?: Yes - Past Social History Smoking Status: Never Smoked - CARDIAC Hx Hypercholesterolemia: Yes Hx Hypertension: Yes - PULMONARY Hx Respiratory Disorders: No - NEUROLOGICAL Hx Neurological Disorder: No - HEENT Hx HEENT Problems: No - RENAL Hx Chronic Kidney Disease: No - ENDOCRINE/METABOLIC Hx Hypothyroidism: Yes - HEMATOLOGICAL/ONCOLOGICAL Hx Blood Disorders: No - INTEGUMENTARY Hx Dermatological Problems: No - MUSCULOSKELETAL/RHEUMATOLOGICAL Hx Falls: No - GASTROINTESTINAL Hx Gall Bladder Disease: Yes Hx Pancreatitis: Yes (cirrhosis) - GENITOURINARY/GYNECOLOGICAL Hx Genitourinary Disorders: No - PSYCHIATRIC Hx Substance Use: No - SURGICAL HISTORY Hx Surgeries: No - ANESTHESIA Hx Anesthesia: No Hx Anesthesia Reactions: No Hx Malignant Hyperthermia: No Meds Allergies/Adverse Reactions: Allergies Allergy/AdvReac Type Severity Reaction Status Date / Time No Known Allergies Allergy Verified 05/27/18 08:24 Physical Exam - Constitutional Appears: Non-toxic, No Acute Distress - Head Exam Head Exam: ATRAUMATIC, NORMOCEPHALIC - Eye Exam Eye Exam: EOMI - ENT Exam ENT Exam: Mucous Membranes Moist - Neck Exam Neck exam: Positive for: Full Rom Additional comments: no JVD, no carotid bruit - Respiratory Exam Respiratory Exam: Chest Wall Tenderness (tenderness on palpation of sternum), Clear to Auscultation Bilateral, NORMAL BREATHING PATTERN. absent: Rales, Rhonchi, Wheezes - Cardiovascular Exam Cardiovascular Exam: Tachycardia, +S1, +S2 - GI/Abdominal Exam GI & Abdominal Exam: Normal Bowel Sounds, Soft - Extremities Exam Extremities exam: Positive for: normal inspection. Negative for: calf tenderness, pedal edema Additional comments: right thigh tenderness - Back Exam Back exam: absent: CVA tenderness (L), CVA tenderness (R) - Neurological Exam Neurological exam: Alert - Skin Skin Exam: Warm Results - Vital Signs Recent Vital Signs: Last Vital Signs Temp 97.3 F L 08/19/18 08:24 Pulse 85 05/27/18 10:47 Resp 16 05/27/18 10:47 BP 151/56 H 05/27/18 10:47 Pulse Ox 100 05/27/18 10:47 - Labs Result Diagrams: 05/27/18 09:18 05/27/18 09:18 Labs: Laboratory Results - last 24 hr 05/27/18 05/27/18 05/27/18 09:18 09:18 09:18 WBC 7.3 RBC 4.31 Hgb 12.2 Hct 36.4 MCV 84.5 MCH 28.4 MCHC 33.6 RDW 14.1 Plt Count 162 MPV 10.9 Neut % (Auto) 57.6 Lymph % (Auto) 34.5 [place] % (Auto) 5.7 Eos % (Auto) 1.8 Baso % (Auto) 0.4 Neut # (Auto) 4.2 Lymph # (Auto) 2.5 [place] # (Auto) 0.4 Eos # (Auto) 0.1 Baso # (Auto) 0.0 PT 12.1 INR 1.1 APTT 32 D-Dimer, Quantitative < 200 Sodium 139 Potassium 3.9 Chloride 103 Carbon Dioxide 24 Anion Gap 16 BUN 11 Creatinine 0.7 Est GFR ( Amer) > 60 Est GFR (Non-Af Amer) > 60 Random Glucose 112 H Calcium 9.8 Total Bilirubin 0.5 AST 82 H ALT 63 H Alkaline Phosphatase 111 Total Creatine Kinase 61 CK-MB (Mass) 0.41 Troponin I < 0.0120 NT-Pro-B Natriuret Pep 69.1 Total Protein 7.5 Albumin 4.1 Globulin 3.4 Albumin/Globulin Ratio 1.2 Urine Color Urine Clarity Urine pH Ur Specific [place] Urine Protein Urine Glucose (UA) Urine Ketones Urine Blood Urine Nitrate Urine Bilirubin Urine Urobilinogen Ur Leukocyte Esterase Urine WBC (Auto) Urine RBC (Auto) Ur Squamous Epith Cells 05/27/18 10:56 WBC RBC Hgb Hct MCV MCH MCHC RDW Plt Count MPV Neut % (Auto) Lymph % (Auto) [place] % (Auto) Eos % (Auto) Baso % (Auto) Neut # (Auto) Lymph # (Auto) [place] # (Auto) Eos # (Auto) Baso # (Auto) PT INR APTT D-Dimer, Quantitative Sodium Potassium Chloride Carbon Dioxide Anion Gap BUN Creatinine Est GFR ( Amer) Est GFR (Non-Af Amer) Random Glucose Calcium Total Bilirubin AST ALT Alkaline Phosphatase Total Creatine Kinase CK-MB (Mass) Troponin I NT-Pro-B Natriuret Pep Total Protein Albumin Globulin Albumin/Globulin Ratio Urine Color Yellow Urine Clarity Clear Urine pH 7.0 Ur Specific [place] 1.009 Urine Protein Negative Urine Glucose (UA) Normal Urine Ketones Negative Urine Blood 1+ H Urine Nitrate Negative Urine Bilirubin Negative Urine Urobilinogen Normal Ur Leukocyte Esterase Neg Urine WBC (Auto) < 1 Urine RBC (Auto) 1 Ur Squamous Epith Cells < 1 Assessment & Plan - Assessment and Plan (Free Text) Assessment: Chest pain rule out ACS first troponin negative, will continue to trend x 2 more monitor on telemetry will check: A1c, lipid panel, thyroid studies continue to check EKG with JASSON panel will consult cardiology, Dr. Serrano- help appreciated Diastolic Dysfunction last echocardiogram done in 2015 shows: EF 59%, diastolic dysfunction, mild mitral regurgitation, mild tricuspid regurgitation, mild pulmonary hypertension , no valvular pulmonic regurgitation. Will check new echocardiogram BNP 69.1, however patient is symptomatic with exertional dyspnea Epigastric abdominal pain patient had CT abdomen 04/23/18 which showed hepatic steatosis, small hypodensities, colonic diverticulosis, grade 1 anterolisthesis L4 on L5 (see full report) will continue protonix 40mg PO daily, Transaminitis possibly due to hepatic steatosis will continue to monitor Hypertension continue home medications Losartan 100/ HCTZ 25mg daily, imdur 120mg PO daily continue to monitor Hypothyroidism will check thyroid studies continue home dose levothyroxine 50mcg, consider adjustment pending studies Hyperlipidemia continue home medication crestor 20mg HS will check lipid panel Prophylactic measure protonix 40mg daily heparin [place] [id number] PT eval <José Miguel Olsen H - Last Filed: 05/27/18 18:43> Results - Vital Signs Recent Vital Signs: Last Vital Signs Temp 97.3 F L 05/27/18 08:24 Pulse 95 H 05/27/18 17:45 Resp 20 05/27/18 17:45 BP 134/43 L 05/27/18 17:45 Pulse Ox 98 05/27/18 17:45 - Labs Result Diagrams: 05/27/18 09:18 05/27/18 09:18 Labs: Laboratory Results - last 24 hr 05/27/18 05/27/18 05/27/18 09:18 09:18 09:18 WBC 7.3 RBC 4.31 Hgb 12.2 Hct 36.4 MCV 84.5 MCH 28.4 MCHC 33.6 RDW 14.1 Plt Count 162 MPV 10.9 Neut % (Auto) 57.6 Lymph % (Auto) 34.5 [place] % (Auto) 5.7 Eos % (Auto) 1.8 Baso % (Auto) 0.4 Neut # (Auto) 4.2 Lymph # (Auto) 2.5 [place] # (Auto) 0.4 Eos # (Auto) 0.1 Baso # (Auto) 0.0 PT 12.1 INR 1.1 APTT 32 D-Dimer, Quantitative < 200 Sodium 139 Potassium 3.9 Chloride 103 Carbon Dioxide 24 Anion Gap 16 BUN 11 Creatinine 0.7 Est GFR ( Amer) > 60 Est GFR (Non-Af Amer) > 60 Random Glucose 112 H Calcium 9.8 Total Bilirubin 0.5 AST 82 H ALT 63 H Alkaline Phosphatase 111 Total Creatine Kinase 61 CK-MB (Mass) 0.41 Troponin I < 0.0120 NT-Pro-B Natriuret Pep 69.1 Total Protein 7.5 Albumin 4.1 Globulin 3.4 Albumin/Globulin Ratio 1.2 Lipase 70 Urine Color Urine Clarity Urine pH Ur Specific [place] Urine Protein Urine Glucose (UA) Urine Ketones Urine Blood Urine Nitrate Urine Bilirubin Urine Urobilinogen Ur Leukocyte Esterase Urine WBC (Auto) Urine RBC (Auto) Ur Squamous Epith Cells 05/27/18 05/27/18 10:56 14:53 WBC RBC Hgb Hct MCV MCH MCHC RDW Plt Count MPV Neut % (Auto) Lymph % (Auto) [place] % (Auto) Eos % (Auto) Baso % (Auto) Neut # (Auto) Lymph # (Auto) [place] # (Auto) Eos # (Auto) Baso # (Auto) PT INR APTT D-Dimer, Quantitative Sodium Potassium Chloride Carbon Dioxide Anion Gap BUN Creatinine Est GFR ( Amer) Est GFR (Non-Af Amer) Random Glucose Calcium Total Bilirubin AST ALT Alkaline Phosphatase Total Creatine Kinase 55 CK-MB (Mass) 0.35 Troponin I < 0.0120 NT-Pro-B Natriuret Pep Total Protein Albumin Globulin Albumin/Globulin Ratio Lipase 66 Urine Color Yellow Urine Clarity Clear Urine pH 7.0 Ur Specific [place] 1.009 Urine Protein Negative Urine Glucose (UA) Normal Urine Ketones Negative Urine Blood 1+ H Urine Nitrate Negative Urine Bilirubin Negative Urine Urobilinogen Normal Ur Leukocyte Esterase Neg Urine WBC (Auto) < 1 Urine RBC (Auto) 1 Ur Squamous Epith Cells < 1 Attending/Attestation - Attestation I have personally seen and examined this patient.: Yes I have fully participated in the care of the patient.: Yes I have reviewed all pertinent clinical information: Yes Notes (Text): 05/27/18 18:40 Medical attending: Patient was seen and examined by me. Agree with the above note by the resident The patient was not in any acute distress when I came and saw her. She reported a lot of the discomfort was epigastric area to me on exam. She also has been having shortness of breath as well. The patient does have a history of HTN as well as CXRAY showing cardiomegaly. It was not a great CXRAY however it was very cardiomegaly. We need to get an echo. There is an old echo from 3 years before which showed vavluar as well as moderate pulmonary HTN. Further more we need to check additional cardiac enzymes. The D-Dimer was done and was negative. Also check Lipase as well. José Miguel Olsen
[2018-05-27] MEDS: LOSARTAN 100MG PO SCH (13:20)
[2018-05-27] MEDS: Levothyroxine 50 MCG TAB PO SCH (13:24)
[2018-05-27] MEDS: PANTOPRAZOLE 40 MG PO SCH (13:25)
[2018-05-27 14:08] LABS: LIPASE 70 U/L (23-300)
[2018-05-27 15:11] LABS: LIPASE 66 U/L (23-300)
[2018-05-27 15:21] LABS: CK-MB 0.35 ng/mL (0.0-3.38)
[2018-05-28 01:49] VITALS: O2SAT 96
[2018-05-28] MEDS: Levothyroxine 50 MCG TAB PO SCH (05:27)
[2018-05-28 06:26] LABS: BASO % 0.6 % (0.0-2.0); EOS # 0.2 K/uL (0.0-0.7); EOS % 1.9 % (0.0-4.0); HEMOGLOBIN 11.4 g/dL (11.0-16.0); LYMPH # 2.8 K/uL (1.0-4.3); LYMPH % 34.2 % (20.0-40.0); MEAN CORPUSCULAR HEMOGLOBIN 28.7 pg (27.0-31.0); MEAN CORPUSCULAR HGB CONC 33.7 g/dL (33.0-37.0); MEAN PLATELET VOLUME 11.3 fL (7.2-11.7); MONO # 0.5 K/uL (0.0-0.8); MONO % 5.7 % (0.0-10.0); NEUT # 4.8 K/uL (1.8-7.0); NEUT % 57.6 % (50.0-75.0); NRBC % 0.1 % (0.0-2.0); RBC 3.97 Mil/uL (3.80-5.20); RED CELL DISTRIBUTION WIDTH 14.2 % (11.5-14.5); WHITE BLOOD COUNT 8.3 K/uL (4.8-10.8)
[2018-05-28 07:03] LABS: ALB/GLOB RATIO 1.2 (1.0-2.1); ALBUMIN 3.8 g/dL (3.5-5.0); ALT/SGPT 62 U/L (9-52); AST/SGOT 82 U/L (14-36); BLOOD UREA NITROGEN 18 mg/dL (7-17); CALCIUM 9.5 mg/dl (8.6-10.4); GFR AFRICAN-AMERICAN > 60; GFR NON-AFRICAN AMERICAN > 60; HDL CHOLESTEROL 25 mg/dL (30-70)
[2018-05-28 07:13] LABS: LDL CHOLESTEROL 54 mg/dL (0-129)
[2018-05-28] MEDS: PANTOPRAZOLE 40 MG PO SCH (10:06)
[2018-05-28] MEDS: LOSARTAN 100MG PO SCH (10:06)
[2018-05-28 10:10] VITALS: BP 109/66; PULSE 74; RESP 18; TEMP 98.3
--- NOTE | 2018-05-28 12:35 | CP.PCM.DIS ---
<Elaina Butler - Last Filed: 05/28/18 14:59> Provider - Provider Date of Admission: 05/27/18 10:27 Attending physician: José Miguel Olsen DO Primary care physician: Dr. Merida Consults: none Time Spent in preparation of Discharge (in minutes): 45 Diagnosis - Discharge Diagnosis (1) Chest pain Status: Acute Priority: High (2) Hepatic steatosis Status: Chronic Priority: Medium (3) Diastolic dysfunction Status: Chronic Priority: Medium (4) HTN (hypertension) Status: Acute Priority: Medium (5) HLD (hyperlipidemia) Status: Chronic Priority: Low (6) Hypothyroidism Status: Chronic Priority: Low (7) Transaminitis Status: Chronic Priority: Low Hospital Course - Lab Results Lab Results: Most Recent Lab Values WBC 8.3 K/uL (4.8-10.8) 05/28/18 06:17 RBC 3.97 Mil/uL (3.80-5.20) 05/28/18 06:17 Hgb 11.4 g/dL (11.0-16.0) 05/28/18 06:17 Hct 33.8 % (34.0-47.0) L 05/28/18 06:17 MCV 85.0 fL (81.0-99.0) 05/28/18 06:17 MCH 28.7 pg (27.0-31.0) 05/28/18 06:17 MCHC 33.7 g/dL (33.0-37.0) 05/28/18 06:17 RDW 14.2 % (11.5-14.5) 05/28/18 06:17 Plt Count 152 K/uL (130-400) 05/28/18 06:17 MPV 11.3 fL (7.2-11.7) 05/28/18 06:17 Neut % (Auto) 57.6 % (50.0-75.0) 05/28/18 06:17 Lymph % (Auto) 34.2 % (20.0-40.0) 05/28/18 06:17 [place] % (Auto) 5.7 % (0.0-10.0) 05/28/18 06:17 Eos % (Auto) 1.9 % (0.0-4.0) 05/28/18 06:17 Baso % (Auto) 0.6 % (0.0-2.0) 05/28/18 06:17 Neut # (Auto) 4.8 K/uL (1.8-7.0) 05/28/18 06:17 Lymph # (Auto) 2.8 K/uL (1.0-4.3) 05/28/18 06:17 [place] # (Auto) 0.5 K/uL (0.0-0.8) 05/28/18 06:17 Eos # (Auto) 0.2 K/uL (0.0-0.7) 05/28/18 06:17 Baso # (Auto) 0.0 K/uL (0.0-0.2) 05/28/18 06:17 PT 12.1 SECONDS (9.7-12.2) 05/27/18 09:18 INR 1.1 05/27/18 09:18 APTT 32 SECONDS (21-34) 05/27/18 09:18 D-Dimer, Quantitative < 200 ng/mlDDU (0-243) 05/27/18 09:18 Sodium 137 mmol/L (132-148) 05/28/18 06:17 Potassium 4.1 mmol/L (3.6-5.2) 05/28/18 06:17 Chloride 101 mmol/L (98-107) 05/28/18 06:17 Carbon Dioxide 23 mmol/L (22-30) 05/28/18 06:17 Anion Gap 18 (10-20) 05/28/18 06:17 BUN 18 mg/dL (7-17) H 05/28/18 06:17 Creatinine 0.8 mg/dL (0.7-1.2) 05/28/18 06:17 Est GFR ( Amer) > 60 05/28/18 06:17 Est GFR (Non-Af Amer) > 60 05/28/18 06:17 Random Glucose 122 mg/dL (65-105) H 05/28/18 06:17 Hemoglobin A1c 6.1 % (4.2-6.5) 05/28/18 06:17 Calcium 9.5 mg/dl (8.6-10.4) 05/28/18 06:17 Phosphorus 3.7 mg/dL (2.5-4.5) 05/28/18 06:17 Magnesium 1.7 mg/dL (1.6-2.3) 05/28/18 06:17 Total Bilirubin 0.4 mg/dL (0.2-1.3) 05/28/18 06:17 AST 82 U/L (14-36) H 05/28/18 06:17 ALT 62 U/L (9-52) H 05/28/18 06:17 Alkaline Phosphatase 103 U/L (38-126) 05/28/18 06:17 Total Creatine Kinase 50 U/L (30-135) 05/27/18 21:53 CK-MB (Mass) 0.30 ng/mL (0.0-3.38) 05/27/18 21:53 Troponin I < 0.0120 ng/mL (0.00-0.120) 05/27/18 21:53 NT-Pro-B Natriuret Pep 69.1 pg/mL (0-900) 05/27/18 09:18 Total Protein 6.9 g/dL (6.3-8.3) 05/28/18 06:17 Albumin 3.8 g/dL (3.5-5.0) 05/28/18 06:17 Globulin 3.1 gm/dL (2.2-3.9) 05/28/18 06:17 Albumin/Globulin Ratio 1.2 (1.0-2.1) 05/28/18 06:17 Triglycerides 192 mg/dL (0-149) H 05/28/18 06:17 Cholesterol 117 mg/dL (0-199) 05/28/18 06:17 LDL Cholesterol Direct 54 mg/dL (0-129) 05/28/18 06:17 HDL Cholesterol 25 mg/dL (30-70) L 05/28/18 06:17 Lipase 66 U/L (23-300) 05/27/18 14:53 Free T4 1.49 ng/dL (0.78-2.19) 05/28/18 06:17 TSH 3rd Generation 2.14 mIU/L (0.46-4.68) 05/28/18 06:17 Urine Color Yellow (YELLOW) 05/27/18 10:56 Urine Clarity Clear (Clear) 05/27/18 10:56 Urine pH 7.0 (5.0-8.0) 05/27/18 10:56 Ur Specific [place] 1.009 (1.003-1.030) 05/27/18 10:56 Urine Protein Negative mg/dL (NEGATIVE) 05/27/18 10:56 Urine Glucose (UA) Normal mg/dL (Normal) 05/27/18 10:56 Urine Ketones Negative mg/dL (NEGATIVE) 05/27/18 10:56 Urine Blood 1+ (NEGATIVE) H 05/27/18 10:56 Urine Nitrate Negative (NEGATIVE) 05/27/18 10:56 Urine Bilirubin Negative (NEGATIVE) 05/27/18 10:56 Urine Urobilinogen Normal mg/dL (0.2-1.0) 05/27/18 10:56 Ur Leukocyte Esterase Neg Jose/uL (Negative) 05/27/18 10:56 Urine WBC (Auto) < 1 /hpf (0-5) 05/27/18 10:56 Urine RBC (Auto) 1 /hpf (0-3) 05/27/18 10:56 Ur Squamous Epith Cells < 1 /hpf (0-5) 05/27/18 10:56 - Hospital Course Hospital Course: Patient is a 72 year old female with past medical history of hypertension, elevated cholesterol, tachycardia, hypothyroidism, gastritis who presents to the ED with complaint of dyspnea for past 6 days and chest pain for past 3 days. She also complains of diffuse body aches and muscle cramps, most strong in her left thigh. She reports left arm pain but denies numbness. She reports complaint of bilateral leg swelling as well. Patient was previously evaluated in the ED on 04/23/18 for complaint of stomach pain as well as leg pain /cramps. Lower extremity dopplers were negative for DVT at that time. She had abdominal CT at that time which showed hepatic steatosis, small hypodensities, colonic diverticulosis, grade 1 anterolisthesis L4 on L5. Patient was discharged at that time with pepcid and zofran. Patient reports she is still having abdominal cramping. She reports vomiting twice yesterday, and also reports stomach bloating. She reports room spinning and light-headed feeling. She reports decreased appetite for three days. She admits to exertional dyspnea and can only walk 2-3 blocks without stopping. She reports difficulty sleeping recently because she does not want to lay flat. Upon discharge, patient's EKG was NSR. She had negative troponins x3. Echo was complete without any immediate interventions necessary- patient will follow-up full results as outpatient. Thyroid studies were wnl. Lipase was wnl, and patient's abdominal pain subsided. UTI and influenza was ruled out. Upon discharge, patient denies significant chest pain. She had not had nausea or vomiting in >24 hrs. Patient was eating and sleeping well. She denied urinary symptoms. She was having regular BMs. She will resume home medications and follow-up with her PMD Dr. Merida. Discharge Exam - Head Exam Head Exam: ATRAUMATIC, NORMAL INSPECTION, NORMOCEPHALIC - Eye Exam Eye Exam: EOMI, Normal appearance - ENT Exam ENT Exam: Mucous Membranes Moist, Normal Exam - Neck Exam Neck exam: Normal Inspection - Respiratory Exam Respiratory Exam: Clear to PA & Lateral, NORMAL BREATHING PATTERN, UNREMARKABLE - Cardiovascular Exam Cardiovascular Exam: REGULAR RHYTHM, +S1, +S2 - GI/Abdominal Exam GI & Abdominal Exam: Normal Bowel Sounds, Unremarkable - Rectal Exam Rectal Exam: Deferred - Extremities Exam Extremities exam: normal inspection - Back Exam Back exam: NORMAL INSPECTION - Neurological Exam Neurological exam: Alert, Oriented x3 - Psychiatric Exam Psychiatric exam: Normal Affect - Skin Skin Exam: Dry, Intact, Normal Color, Warm - Additional Findings Additional findings: L chest/breast pain reproducible with palpation Discharge Plan - Follow Up Plan Condition: STABLE Disposition: HOME/ ROUTINE Patient education suggested?: Yes Instructions: Heart Healthy Diet, Chest Pain (DC), Coronary Heart Disease (DC) Additional Instructions: Patient is cleared for discharge as per Dr. Travon Gaston. She will follow-up with her primary care provider, Dr. Merida, within one week of discharge. There , she can follow-up results of her echo done during admission and receive a referral for outpatient PT. The patient was instructed to continue all of her home medications as prescribed. If symptoms recur or worsen, patient is to return to the ED. This was explained to the patient and her , who acknowledge understanding and agree. Referrals: Geovany Merida [Staff Provider] - <Travon Gaston - Last Filed: 05/28/18 18:15> Provider - Provider Date of Admission: 05/27/18 10:27 Attending physician: Travon Gaston MD Time Spent in preparation of Discharge (in minutes): 40 Hospital Course - Lab Results Lab Results: Most Recent Lab Values WBC 8.3 K/uL (4.8-10.8) 05/28/18 06:17 RBC 3.97 Mil/uL (3.80-5.20) 05/28/18 06:17 Hgb 11.4 g/dL (11.0-16.0) 05/28/18 06:17 Hct 33.8 % (34.0-47.0) L 05/28/18 06:17 MCV 85.0 fL (81.0-99.0) 05/28/18 06:17 MCH 28.7 pg (27.0-31.0) 05/28/18 06:17 MCHC 33.7 g/dL (33.0-37.0) 05/28/18 06:17 RDW 14.2 % (11.5-14.5) 05/28/18 06:17 Plt Count 152 K/uL (130-400) 05/28/18 06:17 MPV 11.3 fL (7.2-11.7) 05/28/18 06:17 Neut % (Auto) 57.6 % (50.0-75.0) 05/28/18 06:17 Lymph % (Auto) 34.2 % (20.0-40.0) 05/28/18 06:17 [place] % (Auto) 5.7 % (0.0-10.0) 05/28/18 06:17 Eos % (Auto) 1.9 % (0.0-4.0) 05/28/18 06:17 Baso % (Auto) 0.6 % (0.0-2.0) 05/28/18 06:17 Neut # (Auto) 4.8 K/uL (1.8-7.0) 05/28/18 06:17 Lymph # (Auto) 2.8 K/uL (1.0-4.3) 05/28/18 06:17 [place] # (Auto) 0.5 K/uL (0.0-0.8) 05/28/18 06:17 Eos # (Auto) 0.2 K/uL (0.0-0.7) 05/28/18 06:17 Baso # (Auto) 0.0 K/uL (0.0-0.2) 05/28/18 06:17 PT 12.1 SECONDS (9.7-12.2) 05/27/18 09:18 INR 1.1 05/27/18 09:18 APTT 32 SECONDS (21-34) 05/27/18 09:18 D-Dimer, Quantitative < 200 ng/mlDDU (0-243) 05/27/18 09:18 Sodium 137 mmol/L (132-148) 05/28/18 06:17 Potassium 4.1 mmol/L (3.6-5.2) 05/28/18 06:17 Chloride 101 mmol/L (98-107) 05/28/18 06:17 Carbon Dioxide 23 mmol/L (22-30) 05/28/18 06:17 Anion Gap 18 (10-20) 05/28/18 06:17 BUN 18 mg/dL (7-17) H 05/28/18 06:17 Creatinine 0.8 mg/dL (0.7-1.2) 05/28/18 06:17 Est GFR ( Amer) > 60 05/28/18 06:17 Est GFR (Non-Af Amer) > 60 05/28/18 06:17 Random Glucose 122 mg/dL (65-105) H 05/28/18 06:17 Hemoglobin A1c 6.1 % (4.2-6.5) 05/28/18 06:17 Calcium 9.5 mg/dl (8.6-10.4) 05/28/18 06:17 Phosphorus 3.7 mg/dL (2.5-4.5) 05/28/18 06:17 Magnesium 1.7 mg/dL (1.6-2.3) 05/28/18 06:17 Total Bilirubin 0.4 mg/dL (0.2-1.3) 05/28/18 06:17 AST 82 U/L (14-36) H 05/28/18 06:17 ALT 62 U/L (9-52) H 05/28/18 06:17 Alkaline Phosphatase 103 U/L (38-126) 05/28/18 06:17 Total Creatine Kinase 50 U/L (30-135) 05/27/18 21:53 CK-MB (Mass) 0.30 ng/mL (0.0-3.38) 05/27/18 21:53 Troponin I < 0.0120 ng/mL (0.00-0.120) 05/27/18 21:53 NT-Pro-B Natriuret Pep 69.1 pg/mL (0-900) 05/27/18 09:18 Total Protein 6.9 g/dL (6.3-8.3) 05/28/18 06:17 Albumin 3.8 g/dL (3.5-5.0) 05/28/18 06:17 Globulin 3.1 gm/dL (2.2-3.9) 05/28/18 06:17 Albumin/Globulin Ratio 1.2 (1.0-2.1) 05/28/18 06:17 Triglycerides 192 mg/dL (0-149) H 05/28/18 06:17 Cholesterol 117 mg/dL (0-199) 05/28/18 06:17 LDL Cholesterol Direct 54 mg/dL (0-129) 05/28/18 06:17 HDL Cholesterol 25 mg/dL (30-70) L 05/28/18 06:17 Lipase 66 U/L (23-300) 05/27/18 14:53 Free T4 1.49 ng/dL (0.78-2.19) 05/28/18 06:17 TSH 3rd Generation 2.14 mIU/L (0.46-4.68) 05/28/18 06:17 Urine Color Yellow (YELLOW) 05/27/18 10:56 Urine Clarity Clear (Clear) 05/27/18 10:56 Urine pH 7.0 (5.0-8.0) 05/27/18 10:56 Ur Specific [place] 1.009 (1.003-1.030) 05/27/18 10:56 Urine Protein Negative mg/dL (NEGATIVE) 05/27/18 10:56 Urine Glucose (UA) Normal mg/dL (Normal) 05/27/18 10:56 Urine Ketones Negative mg/dL (NEGATIVE) 05/27/18 10:56 Urine Blood 1+ (NEGATIVE) H 05/27/18 10:56 Urine Nitrate Negative (NEGATIVE) 05/27/18 10:56 Urine Bilirubin Negative (NEGATIVE) 05/27/18 10:56 Urine Urobilinogen Normal mg/dL (0.2-1.0) 05/27/18 10:56 Ur Leukocyte Esterase Neg Jose/uL (Negative) 05/27/18 10:56 Urine WBC (Auto) < 1 /hpf (0-5) 05/27/18 10:56 Urine RBC (Auto) 1 /hpf (0-3) 05/27/18 10:56 Ur Squamous Epith Cells < 1 /hpf (0-5) 05/27/18 10:56 Influenza Typ A,B (EIA) Negative for flu a/b (NEGATIVE) 05/28/18 13:51 Attending/Attestation - Attestation I have personally seen and examined this patient.: Yes I have fully participated in the care of the patient.: Yes I have reviewed all pertinent clinical information, including history, physical exam and plan: Yes Notes (Text): 05/28/18 18:12 Patient was seen and examined at 12:30 PM 05/28/18 660 B wit her present Her presenting complaints of Dyspnea, Chest Pain, N/V (she tolerated her breakfast), Lightheadedness, and decreased appetite have resolved. Still with complaint of Right Calf stiffness/ache. Exam, assessment and plan, and discharge instructions were gone over with the resident. Explained to that patient will need to follow up with PMD Dr. Kern for referral for Physical Therapy and to go over the results of her Echocardiogram. confirmed that patient had all of her medications at home. Travon Gaston D.O.
--- NOTE | 2018-05-28 23:03 | CARD ---
APPROVED REPORT Date of service: 05/28/2018 EXAM: Two-dimensional and M-mode echocardiogram with Doppler and color Doppler. Other Information Quality : GoodRhythm : INDICATION Dyspnea Cardiac Disease: CAD Chest Pain 2D DIMENSIONS IVSd1.0 (0.7-1.1cm)LVDd3.4 (3.9-5.9cm) PWd1.0 (0.7-1.1cm)LVDs2.0 (2.5-4.0cm) FS (%) 39.8 %LVEF (%)71.6 (>50%) M-Mode DIMENSIONS Left Atrium (MM)3.89 (2.5-4.0cm)IVSd1.37 (0.7-1.1cm) Aortic Root3.24 (2.2-3.7cm)LVDd4.80 (4.0-5.6cm) Aortic Cusp Exc.1.84 (1.5-2.0cm)PWd1.08 (0.7-1.1cm) FS (%) 43 %LVDs2.71 (2.0-3.8cm) LVEF (%)74 (>50%) Mitral Valve MV E Blkbvqzh83.8cm/sMV A Nebpsmvd49.4cm/sE/A ratio0.5 TDI E/Lateral E'0.0E/Medial E'0.0 Tricuspid Valve TR Peak Brnbtjji250ud/sTR Peak [id number] <Conclusion> Technically difficult study may adversely limit accuracy of this report Left ventricle: thickness: normal; size: normal; overall ejection fraction: 65%: diastolic filling pressures: normal Mitral valve: annulus: normal: leaflets: normal: excursion: normal; no significant trans-mitral gradient: no significant incompetence: left atrium: normal Aortic valve: leaflets: normal: excursion: normal; no significant trans-aortic gradient: No significant incompetence: aortic root: normal Right sided Structures: Pulmonary valve: normal; no significant incompetence; Tricuspid valve: normal; no significant incompetence: Intra-cardiac hemodynamics: pulmonary systolic pressures: normal; central venous pressures: normal No pericardial effusion
--- NOTE | 2018-05-28 23:37 | CARD ---
APPROVED REPORT Date of service: 05/27/2018 EKG Measurement Heart [id number] <Conclusion> Normal sinus rhythm Normal ECG
--- NOTE | 2018-05-28 23:46 | CARD ---
APPROVED REPORT Date of service: 05/27/2018 EKG Measurement Heart [id number] <Conclusion> Normal sinus rhythm Normal ECG
--- NOTE | 2018-05-29 17:42 | CARD ---
APPROVED REPORT Date of service: 05/27/2018 EKG Measurement Heart [id number] <Conclusion> Normal sinus rhythm Normal ECG
== END 2018-05-28 16:00 | disposition home or self-care (01) ==
LOC: C.ER 08:16 → C.9E 10:27 → C.9I 21:26 → C.6T 21:31
PROVIDERS: ADMIT Family Medicine; ATTEND Family Medicine
DX: R07.9 Chest pain, unspecified (principal); K76.0 Fatty (change of) liver, not elsewhere classified; I10 Essential (primary) hypertension; E78.5 Hyperlipidemia, unspecified; E03.9 Hypothyroidism, unspecified
CPT/HCPCS: 36415; 71045; 80053; 80061; 81001; 82550; 82553; 83036; 83690; 83735; 83880; 84100; 84439; 84443; 84484; 85025; 85378; 85610; 85730; 87804; 93005; 93306; 97140; 97162; 99285; G0378; G8978; G8979; J1644

== ENCOUNTER 2018-10-30 14:39 | Observation (INO) | payer MEDICARE, MEDICAID ==
[2018-10-30 14:40] VITALS: BMI 30.2
[2018-10-30 16:36] LABS: BASO % 0.6 % (0.0-2.0); EOS # 0.4 K/uL (0.0-0.7); EOS % 4.4 % (0.0-4.0); HEMOGLOBIN 12.6 g/dL (11.0-16.0); LYMPH % 35.8 % (20.0-40.0); MEAN CORPUSCULAR HEMOGLOBIN 26.7 pg (27.0-31.0); MEAN CORPUSCULAR HGB CONC 32.4 g/dL (33.0-37.0); MEAN PLATELET VOLUME 10.8 fL (7.2-11.7); MONO # 0.5 K/uL (0.0-0.8); MONO % 6.4 % (0.0-10.0); NEUT # 4.4 K/uL (1.8-7.0); NEUT % 52.8 % (50.0-75.0); NRBC % 0.1 % (0.0-2.0); RBC 4.73 Mil/uL (3.80-5.20); RED CELL DISTRIBUTION WIDTH 14.1 % (11.5-14.5); WHITE BLOOD COUNT 8.2 K/uL (4.8-10.8)
[2018-10-30 16:37] LABS: MEAN CELL VOLUME 82.4 fL (81.0-99.0)
[2018-10-30 16:45] LABS: ALB/GLOB RATIO 1.2 (1.0-2.1); ALT/SGPT 37 U/L (9-52); AST/SGOT 38 U/L (14-36); BLOOD UREA NITROGEN 12 mg/dL (7-17); CALCIUM 9.2 mg/dl (8.6-10.4); GFR NON-AFRICAN AMERICAN > 60
[2018-10-30 16:46] LABS: URINE BACTERIA RARE (<OCC); URINE BILIRUBIN NEGATIVE (NEGATIVE); URINE BLOOD 1+ (NEGATIVE); URINE CLARITY Clear (Clear); URINE COLOR Yellow (YELLOW); URINE GLUCOSE (UA) NORMAL (Normal); URINE LEUKOCYTE ESTERASE NEG Leu/uL (Negative); URINE PROTEIN NEGATIVE (NEGATIVE); URINE UROBILINOGEN NORMAL mg/dL (0.2-1.0)
--- NOTE | 2018-10-30 17:35 | RAD ---
HISTORY: muscle pain COMPARISON: Chest x-ray performed 05/27/18 TECHNIQUE: Chest, one view. FINDINGS: LUNGS: No focal consolidation. Please note that chest x-ray has limited sensitivity for the detection of pulmonary masses. PLEURA: No significant pleural effusion identified. No definite pneumothorax . CARDIOVASCULAR: Cardiomegaly. Ectatic aorta. Atherosclerotic calcifications. OSSEOUS STRUCTURES: Degenerative changes of the spine. VISUALIZED UPPER ABDOMEN: Unremarkable. OTHER FINDINGS: None. IMPRESSION: No focal consolidation. Cardiomegaly. Ectatic aorta.
[2018-10-30] MEDS ORDERED: Potassium Chloride 20 mEq/15 ml LIQ UD PO STA (17:44)
[2018-10-30] MEDS ORDERED: Potassium Chloride 20 mEq/15 ml LIQ UD ONE (18:01)
--- NOTE | 2018-10-30 18:42 | C.PDOC ---
History Of Present Illness 73 y/o female presents to the ED with multiple complaints including back pain and bilateral lower extremity pain for 3 weeks. Patient additionally complains of a dry cough. She also states that her urine smells funny. Denies any dysuria, incontinence, diarrhea, or vomiting. Patient states it is becoming too difficult to walk secondary to pain. Time Seen by Provider: 10/30/18 15:51 Chief Complaint (Nursing): Back Pain History Per: Patient History/Exam Limitations: no limitations Onset/Duration Of Symptoms: Days Current Symptoms Are (Timing): Still Present Past Medical History Reviewed: Historical Data, Nursing Documentation, Vital Signs Vital Signs: Last Vital Signs Temp 97.5 F L 10/30/18 14:50 Pulse 88 10/30/18 18:19 Resp 14 10/30/18 18:19 BP 160/65 H 10/30/18 18:19 Pulse Ox 97 10/30/18 18:19 - Medical History PMH: CAD, Gall Bladder Disease, HTN, Hypercholesterolemia, Hypothyroidism, Pancreatitis (cirrhosis) Denies: Chronic Kidney Disease - [facility] INFLUENZA VACCINATION (08/07/14) Family History: States: Unknown Family Hx - Social History Hx Tobacco Use: No Hx Alcohol Use: No Hx Substance Use: No - Immunization History Hx Tetanus Toxoid Vaccination: No Hx Influenza Vaccination: Yes Hx Pneumococcal Vaccination: Yes Review Of Systems Except As Marked, All Systems Reviewed And Found Negative. Constitutional: Negative for: Fever, Chills Respiratory: Negative for: Shortness of Breath Gastrointestinal: Negative for: Vomiting, Diarrhea Genitourinary: Negative for: Dysuria, Frequency, Incontinence, Hematuria Musculoskeletal: Positive for: Back Pain, Leg Pain Neurological: Positive for: Incoordination (increasing difficulty walking). Negative for: Weakness, Numbness Physical Exam - Physical Exam Appears: Non-toxic, No Acute Distress Skin: Warm, Dry Head: Atraumatic, Normacephalic Eye(s): bilateral: Normal Inspection, PERRL, EOMI Oral Mucosa: Moist Neck: Normal ROM Chest: Symmetrical Cardiovascular: Rhythm Regular, No Murmur Respiratory: Normal Breath Sounds, No Rales, No Rhonchi, No Wheezing Gastrointestinal/Abdominal: Soft, No Tenderness, No Distention Back: No Vertebral Tenderness, Paraspinal Tenderness (Right-sided) Extremity: Pedal Edema (Mild swelling to bilateral lower extremities), No Calf Tenderness Extremity: Bilateral: Atraumatic, Normal Color And Temperature Pulses: Left Dorsalis Pedis: Normal, Right Dorsalis Pedis: Normal Neurological/Psych: Oriented x3, Normal Speech ED Course And Treatment - Laboratory Results Result Diagrams: 10/30/18 16:30 10/30/18 16:30 Lab Results: Total Bilirubin 0.5 mg/dL (0.2-1.3) 10/30/18 16:30 AST 38 U/L (14-36) H D 10/30/18 16:30 ALT 37 U/L (9-52) 10/30/18 16:30 Alkaline Phosphatase 95 U/L (38-126) 10/30/18 16:30 Total Protein 7.4 g/dL (6.3-8.3) 10/30/18 16:30 Albumin 4.0 g/dL (3.5-5.0) 10/30/18 16:30 Globulin 3.4 gm/dL (2.2-3.9) 10/30/18 16:30 Albumin/Globulin Ratio 1.2 (1.0-2.1) 10/30/18 16:30 Urine Color Yellow (YELLOW) 10/30/18 16:30 Urine Clarity Clear (Clear) 10/30/18 16:30 Urine pH 7.0 (5.0-8.0) 10/30/18 16:30 Ur Specific [place] 1.009 (1.003-1.030) 10/30/18 16:30 Urine Protein Negative mg/dL (NEGATIVE) 10/30/18 16:30 Urine Glucose (UA) Normal mg/dL (Normal) 10/30/18 16:30 Urine Ketones Negative mg/dL (NEGATIVE) 10/30/18 16:30 Urine Blood 1+ (NEGATIVE) H 10/30/18 16:30 Urine Nitrate Negative (NEGATIVE) 10/30/18 16:30 Urine Bilirubin Negative (NEGATIVE) 10/30/18 16:30 Urine Urobilinogen Normal mg/dL (0.2-1.0) 10/30/18 16:30 Ur Leukocyte Esterase Neg Jose/uL (Negative) 10/30/18 16:30 Urine WBC (Auto) 1 /hpf (0-5) 10/30/18 16:30 Urine RBC (Auto) 1 /hpf (0-3) 10/30/18 16:30 Urine Bacteria Rare (<OCC) 10/30/18 16:30 O2 Sat by Pulse Oximetry: 97 (RA) Pulse Ox Interpretation: Normal Progress Note: CXR and labs ordered. Tylenol given for pain control. Labs revie mon, patient found to be hypokalemic. Potassium replenished with 20meq potassium chloride. Reevaluation Time: 18:30 (Pt states she is afraid to walk due to instability. She requests that Dr. Mesa take care of her) Reassessment Condition: Unchanged - Physician Consult Information Time Consulting Physician Contacted: 18:41 Physician Contacted: Ellis Mesa Outcome Of Conversation: Case discussed, accepts patient for admission Disposition Counseled Patient/Family Regarding: Studies Performed, Diagnosis - Disposition Disposition: HOSPITALIZED Disposition Time: 18:40 Condition: FAIR Forms: [facility] ([place]) - Clinical Impression Clinical Impression: Low back strain, Lower extremity pain, bilateral, Gait disturbance - PA / [employer]IA MANAGER / Resident Statement MD/DO has reviewed & agrees with the documentation as recorded. - Scribe Statement The provider has reviewed the documentation as recorded by the Scribe Nia Parker All medical record entries made by the Scribe were at my direction and persona lly dictated by me. I have reviewed the chart and agree that the record accurately reflects my personal performance of the history, physical exam, medical decision making, and the department course for this patient. I have also personally directed, reviewed, and agree with the discharge instructions and disposition. Decision To Admit - Pt Status Changed To: Hospital Disposition Of: Observation - . Bed Request Type: Regular Admitting Physician: Ellis Mesa Patient Diagnosis: Low back strain, Lower extremity pain, bilateral, Gait disturbance
[2018-10-30] MEDS ORDERED: Simethicone 80 mg Chewtab PO PRN (21:15)
[2018-10-30 22:01] VITALS: RESP 20
[2018-10-31] MEDS: Levothyroxine 50 MCG TAB PO SCH (05:45)
[2018-10-31] MEDS ORDERED: ISOSORBIDE MONONITRATE 120 MG PO SCH (10:00)
[2018-10-31] MEDS: Enoxaparin 40 mg Syringe SC SCH (10:04)
[2018-10-31] MEDS: Pantoprazole 40 mg EC Tab PO SCH (10:04)
[2018-10-31] MEDS: Potassium Chloride 10 mEq ER Tab PO SCH (10:04)
[2018-10-31] MEDS: Oxycodone/Acetaminophen 5/325 mg Tab PO PRN (21:53)
--- NOTE | 2018-10-31 22:46 | CP.PCM.HP ---
Present on Admission - Present on Admission Any Indicators Present on Admission: No Past Patient History - Past Medical History & Family History Past Medical History?: Yes - Past Social History Smoking Status: Never Smoked - CARDIAC Hx Hypercholesterolemia: Yes Hx Hypertension: Yes - PULMONARY Hx Respiratory Disorders: No - NEUROLOGICAL Hx Neurological Disorder: No - HEENT Hx HEENT Problems: No - RENAL Hx Chronic Kidney Disease: No - ENDOCRINE/METABOLIC Hx Hypothyroidism: Yes - HEMATOLOGICAL/ONCOLOGICAL Hx Blood Disorders: No - INTEGUMENTARY Hx Dermatological Problems: No - MUSCULOSKELETAL/RHEUMATOLOGICAL Hx Falls: No - GASTROINTESTINAL Hx Gall Bladder Disease: Yes Hx Pancreatitis: Yes (cirrhosis) - GENITOURINARY/GYNECOLOGICAL Hx Genitourinary Disorders: No - PSYCHIATRIC Hx Substance Use: No - SURGICAL HISTORY Hx Surgeries: No - ANESTHESIA Hx Anesthesia: No Hx Anesthesia Reactions: No Hx Malignant Hyperthermia: No Meds Allergies/Adverse Reactions: Allergies Allergy/AdvReac Type Severity Reaction Status Date / Time No Known Allergies Allergy Verified 10/30/18 14:53 Results - Vital Signs Recent Vital Signs: Last Vital Signs Temp 98 F 10/31/18 16:00 Pulse 72 10/31/18 16:00 Resp 20 10/31/18 16:00 BP 106/64 10/31/18 16:00 Pulse Ox 95 10/31/18 20:00 - Labs Result Diagrams: 10/30/18 16:30 10/30/18 16:30
[2018-11-01] MEDS ORDERED: Iohexol 240 (50 ml) ONE (03:04)
--- NOTE | 2018-11-01 04:48 | HP ---
CHIEF COMPLAINT: Acute back pain x3 weeks, worse in the last 2 days. HISTORY OF PRESENT ILLNESS: This is a 73-year-old female with history of diabetes, hypertension, hyperlipidemia, hypothyroidism, coronary artery disease, and gallbladder problem, was compliant with her diet, medication, and followup. For the last 3 weeks, she has been having intractable low back pain radiating to bilateral lower extremities all the way down to heels, and the patient has dry cough. According to the patient, she has been taking her home medications including Tylenol, and according to her, her urine smells foully. She denies any dysuria, hematuria, polyuria. She denies any history of abdominal pain. She denies any history of fever. She has low back pain. She has burning sensation in the legs and her pain in the back is worse upon standing, moving, lying down or coughing. There is no history of injury, fall, loss of consciousness. She denies any history of seizures, involuntary movements. She denies any history of tingling, numbness, paresthesia. The patient denies any history of her prior back problems. She denies any headache, dizziness, vertigo. She denies any history of sneezing, itchy eyes, itchy nose. No history of polyuria, polydipsia, polyphagia. PAST MEDICAL HISTORY: Hypertension, borderline diabetes, gallbladder disease, hyperlipidemia. SOCIAL HISTORY: She is nonsmoker, non-EtOH user. CURRENT MEDICATIONS: At home, she is on vitamin E, simethicone, Crestor, potassium citrate, omeprazole, Hyzaar, Levoxyl, Imdur, Neurontin, vitamin D, aspirin. PHYSICAL EXAMINATION: GENERAL: An elderly female in distress with back pain. VITAL SIGNS: Blood pressure 142/76, pulse 76, respiratory rate 20, temperature 98.5. SKIN: No rashes. No bruises. No purpura. No petechiae. HEENT: Atraumatic and normocephalic. Negative pallor. Negative jaundice. Extraocular movements are intact. NECK: Supple. No JVD. No lymph node. No thyromegaly. No carotid bruit. CHEST WALL: Bilateral symmetrical expansion. No tenderness. LUNGS: Clear. No rales. No rhonchi. CVS: PMI not localized. S1, S2. Regular. No heave. No thrill. ABDOMEN: Soft, nontender. Bowel sounds are positive. RECTAL: No masses. No bleed. EXTREMITIES: No clubbing, cyanosis, edema. LUMBOSACRAL SPINE: She has paraspinal spasm of the muscles. She has lordosis and she has decreased range of movement, restricted. Lumbar spine is restricted to 30 degrees on flexion, 15 degrees on expansion, 15 degrees on right and left lateral extension. DRAWING OPERATOR: Awake, alert, and oriented x3. Cranial nerves II through XII are normal. ASSESSMENT: 1. Low back pain, lumbar radiculopathy. 2. Hypertension. 3. Hyperlipidemia. PLAN: Admit. Detailed orders are written. Seen and examined. Ellis Mesa MD
[2018-11-01] MEDS: Levothyroxine 50 MCG TAB PO SCH (05:43)
[2018-11-01] MEDS: Oxycodone/Acetaminophen 5/325 mg Tab PO PRN (05:49)
[2018-11-01 08:24] LABS: BLOOD UREA NITROGEN 15 mg/dL (7-17); CALCIUM 8.8 mg/dl (8.6-10.4); GFR NON-AFRICAN AMERICAN > 60
[2018-11-01] MEDS: Pantoprazole 40 mg EC Tab PO SCH (10:29)
[2018-11-01] MEDS: Potassium Chloride 10 mEq ER Tab PO SCH (10:29)
[2018-11-01] MEDS: Enoxaparin 40 mg Syringe SC SCH (10:30)
--- NOTE | 2018-11-01 16:48 | MRI ---
Date of service: 11/01/2018 PROCEDURE: MR LUMBAR SPINE WITH AND WITHOUT CONTRAST HISTORY: lumbar radiculopathy COMPARISON: None available. TECHNIQUE: Multiecho multiplanar sequences were performed through the lumbar spine with and without the use of intravenous contrast. FINDINGS: Normal lumbar lordosis. There is mild grade 1 anterior spondylolisthesis of L4 relative to L5 noted. Vertebral body heights are preserved. Heterogeneous bone marrow signal noted specially at endplates likely due to degenerative changes. Conus medullaris unremarkable at the level of T12 Paraspinal soft tissues are unremarkable. No abnormal enhancement. T12-L1: No disc herniation, spinal canal stenosis or neural foraminal narrowing. L1-2: There is a small central bulging disc associated with mild posterior ligament hypertrophy without evidence of significant thecal sac narrowing. L2-3: There is a small to moderate size bulging disc associated with mild posterior ligament hypertrophy which resulting in mild spinal stenosis. L3-4: There is small bulging disc without evidence of significant spinal or neural foraminal narrowing. L4-5: There is a broad base small to moderate size bulging disc and disc protrusion associated with posterior ligament and facet joint hypertrophy which resulting in mild to moderate spinal and lateral recess narrowing. L5-S1: No disc herniation, spinal canal stenosis or neural foraminal narrowing. OTHER FINDINGS: Moderate degenerative disc changes noted at multilevel more prominent at L4-L5 and associated with moderate narrowing of the intervertebral disc is space at L4-L5. IMPRESSION: Moderate digit disc and endplate changes. Multilevel posterior bulging disc associated with mild posterior ligament hypertrophy more prominent at L2-L3 and L4-L5 as discussed above.
[2018-11-01 19:17] VITALS: O2SAT 95
--- NOTE | 2018-11-01 23:30 | CP.PCM.PN ---
Subjective - Date & Time of Evaluation Date of Evaluation: 11/01/18 Time of Evaluation: 07:20 - Subjective Subjective: dictated Objective - Vital Signs/Intake and Output Vital Signs (last 24 hours): Temp Pulse Resp BP Pulse Ox 98.2 F 95 H 20 113/67 95 11/01/18 16:00 11/01/18 16:00 11/01/18 16:00 11/01/18 16:00 11/01/18 21:25 Intake and Output: 11/01/18 11/02/18 18:59 06:59 Intake Total 350 Balance 350 - Medications Medications: Current Medications Aspirin (Ecotrin) 81 mg PO DAILY [facility] Last Admin: 11/01/18 10:29 Dose: 81 mg Cyclobenzaprine HCl (Flexeril) 5 mg PO TID [facility] Last Admin: 11/01/18 18:06 Dose: 5 mg Enoxaparin Sodium (Lovenox) 40 mg SC DAILY [facility] Last Admin: 11/01/18 10:30 Dose: 40 mg Gabapentin (Neurontin) 300 mg PO BID [facility] Last Admin: 11/01/18 18:06 Dose: 300 mg Isosorbide Mononitrate (Imdur) 120 mg PO DAILY [facility] Last Admin: 11/01/18 10:28 Dose: 120 mg Levothyroxine Sodium (Synthroid) 50 mcg PO DAILY@0630 [facility] Last Admin: 11/01/18 05:43 Dose: 50 mcg Losartan Potassium (Cozaar) 100 mg PO DAILY [facility] Last Admin: 11/01/18 10:29 Dose: 100 mg Oxycodone/Acetaminophen (Percocet 5/325 Mg Tab) 1 tab PO Q4H PRN PRN Reason: pain Stop: 11/03/18 21:07 Last Admin: 11/01/18 05:49 Dose: 1 tab Pantoprazole Sodium (Protonix Ec Tab) 40 mg PO DAILY [facility] Last Admin: 11/01/18 10:29 Dose: 40 mg Potassium Chloride (Klor-Con 10) 10 meq PO DAILY [facility] Last Admin: 11/01/18 10:29 Dose: 10 meq Simethicone (Mylicon Chew Tab) 160 mg PO HS PRN PRN Reason: Flatulence - Labs Labs: 10/30/18 16:30 11/01/18 07:53
[2018-11-02 00:42] VITALS: BP 107/56; PULSE 81; TEMP 98.3
--- NOTE | 2018-11-02 02:24 | PN ---
DATE: 11/01/2018 SUBJECTIVE: The patient is for MRI of lumbosacral spine. The patient has intractable low back pain, and she is not able to move around. She is bed-bound. She is on physical therapy. No fever. No urinary symptoms. No nausea or vomiting. PHYSICAL EXAMINATION: VITAL SIGNS: Blood pressure 113/67, pulse 95, respiratory rate 20, and temperature 98.2. LUNGS: Clear. CARDIOVASCULAR SYSTEM: S1, S2 regular. ABDOMEN: Soft. ASSESSMENT: 1. Lower back pain, rule out lumbar disk disease, pending magnetic resonance imaging. 2. Hypertension. PLAN: Pain management, physical therapy, and MRI of the lumbar spine. Ellis Mesa MD
[2018-11-02] MEDS: Levothyroxine 50 MCG TAB PO SCH (05:55)
[2018-11-02] MEDS: Enoxaparin 40 mg Syringe SC SCH (09:55)
[2018-11-02] MEDS: Potassium Chloride 10 mEq ER Tab PO SCH (09:56)
[2018-11-02] MEDS: Pantoprazole 40 mg EC Tab PO SCH (09:56)
--- NOTE | 2018-11-02 16:24 | PCM.HF ---
Heart Failure Core Measure - Heart Failure Ejection Fraction: 40 % or Greater (EF 65%) LYLE Inhibitor Prescribed: No Contraindication/Reason for not providing: On arb Beta-Francesca Prescribed: None Contraindication/Reason for not providing: low BP Angiotensin II Receptor Francesca Prescribed: Yes AnticoagulationTherapy for Atrial Fibrillation/Atrialflutter: No Contraindication/Reason for not providing: no afib Aldosterone Antagonist Prescribed: No Contraindication/Reason for not providing: EF >40% Hydralazine Nitrate Prescribed: No Contraindication/Reason for not providing: EF >40% Implantable Cardioverter Defibrillator Therapy: No Contraindication/Reason for not providing: EF >40% Cardiac Resynchronization Therapy Prescribed: No Contraindication/Reason for not providing: not indicated - Follow up Will be discharged to: Home Follow Up Date (must be within 7 days from discharge): 11/06/18 Follow Up Time: 10:00
--- NOTE | 2018-11-02 16:29 | CP.PCM.PN ---
Subjective - Date & Time of Evaluation Date of Evaluation: 11/02/18 Time of Evaluation: 16:29 - Subjective Subjective: alrt, awake, no acute pain or distress, NAD. Objective - Vital Signs/Intake and Output Vital Signs (last 24 hours): Temp Pulse Resp BP Pulse Ox 98.3 F 81 20 107/56 L 95 11/02/18 00:00 11/02/18 00:00 11/02/18 00:00 11/02/18 00:00 11/02/18 00:58 Intake and Output: 11/02/18 11/02/18 06:59 18:59 Intake Total 470 500 Balance 470 500 - Medications Medications: Current Medications Aspirin (Ecotrin) 81 mg PO DAILY [facility] Last Admin: 11/02/18 09:56 Dose: 81 mg Cyclobenzaprine HCl (Flexeril) 5 mg PO TID [facility] Last Admin: 11/02/18 13:45 Dose: 5 mg Enoxaparin Sodium (Lovenox) 40 mg SC DAILY [facility] Last Admin: 11/02/18 09:55 Dose: 40 mg Gabapentin (Neurontin) 300 mg PO BID [facility] Last Admin: 11/02/18 09:56 Dose: 300 mg Isosorbide Mononitrate (Imdur) 120 mg PO DAILY [facility] Last Admin: 11/02/18 09:56 Dose: 120 mg Levothyroxine Sodium (Synthroid) 50 mcg PO DAILY@0630 [facility] Last Admin: 11/02/18 05:55 Dose: 50 mcg Losartan Potassium (Cozaar) 100 mg PO DAILY [facility] Last Admin: 11/02/18 09:56 Dose: 100 mg Oxycodone/Acetaminophen (Percocet 5/325 Mg Tab) 1 tab PO Q4H PRN PRN Reason: pain Stop: 11/03/18 21:07 Last Admin: 11/01/18 05:49 Dose: 1 tab Pantoprazole Sodium (Protonix Ec Tab) 40 mg PO DAILY [facility] Last Admin: 11/02/18 09:56 Dose: 40 mg Potassium Chloride (Klor-Con 10) 10 meq PO DAILY [facility] Last Admin: 11/02/18 09:56 Dose: 10 meq Simethicone (Mylicon Chew Tab) 160 mg PO HS PRN PRN Reason: Flatulence - Labs Labs: 10/30/18 16:30 11/01/18 07:53 Assessment and Plan - Assessment and Plan (Free Text) Assessment: 73 year old female admitted with low back pain , difficulty walking, seen and examined. Alert and orientedx3, able to walk with walker. Pain is improving slow ly. Discussed with DR Mesa, plan to discharge home on home care ,home PT AND PAIN MEDS. Advised to follow up in the office in 1 week.
--- NOTE | 2018-11-02 23:09 | CP.PCM.DIS ---
Provider - Provider Date of Admission: 10/30/18 18:43 Attending physician: Ellis Mesa MD Time Spent in preparation of Discharge (in minutes): 30 Hospital Course - Lab Results Lab Results: Micro Results 10/30/18 16:30 Urine,Clean Catch Urine Culture - Final No Growth (<1,000 CFU/ML) Most Recent Lab Values WBC 8.2 K/uL (4.8-10.8) 10/30/18 16:30 RBC 4.73 Mil/uL (3.80-5.20) 10/30/18 16:30 Hgb 12.6 g/dL (11.0-16.0) 10/30/18 16:30 Hct 39.0 % (34.0-47.0) 10/30/18 16:30 MCV 82.4 fL (81.0-99.0) D 10/30/18 16:30 MCH 26.7 pg (27.0-31.0) L 10/30/18 16:30 MCHC 32.4 g/dL (33.0-37.0) L 10/30/18 16:30 RDW 14.1 % (11.5-14.5) 10/30/18 16:30 Plt Count 143 K/uL (130-400) 10/30/18 16:30 MPV 10.8 fL (7.2-11.7) 10/30/18 16:30 Neut % (Auto) 52.8 % (50.0-75.0) 10/30/18 16:30 Lymph % (Auto) 35.8 % (20.0-40.0) 10/30/18 16:30 [place] % (Auto) 6.4 % (0.0-10.0) 10/30/18 16:30 Eos % (Auto) 4.4 % (0.0-4.0) H 10/30/18 16:30 Baso % (Auto) 0.6 % (0.0-2.0) 10/30/18 16:30 Neut # (Auto) 4.4 K/uL (1.8-7.0) 10/30/18 16:30 Lymph # (Auto) 3.0 K/uL (1.0-4.3) 10/30/18 16:30 [place] # (Auto) 0.5 K/uL (0.0-0.8) 10/30/18 16:30 Eos # (Auto) 0.4 K/uL (0.0-0.7) 10/30/18 16:30 Baso # (Auto) 0.0 K/uL (0.0-0.2) 10/30/18 16:30 Sodium 136 mmol/L (132-148) 11/01/18 07:53 Potassium 3.7 mmol/L (3.6-5.2) 11/01/18 07:53 Chloride 102 mmol/L (98-107) 11/01/18 07:53 Carbon Dioxide 26 mmol/L (22-30) 11/01/18 07:53 Anion Gap 12 (10-20) 11/01/18 07:53 BUN 15 mg/dL (7-17) 11/01/18 07:53 Creatinine 0.8 mg/dL (0.7-1.2) 11/01/18 07:53 Est GFR ( Amer) > 60 11/01/18 07:53 Est GFR (Non-Af Amer) > 60 11/01/18 07:53 POC Glucose (mg/dL) 129 mg/dL (65-110) H 10/30/18 22:14 Random Glucose 96 mg/dL (65-105) 11/01/18 07:53 Calcium 8.8 mg/dl (8.6-10.4) 11/01/18 07:53 Total Bilirubin 0.5 mg/dL (0.2-1.3) 10/30/18 16:30 AST 38 U/L (14-36) H D 10/30/18 16:30 ALT 37 U/L (9-52) 10/30/18 16:30 Alkaline Phosphatase 95 U/L (38-126) 10/30/18 16:30 Total Creatine Kinase 41 U/L (30-135) 10/30/18 16:30 Total Protein 7.4 g/dL (6.3-8.3) 10/30/18 16:30 Albumin 4.0 g/dL (3.5-5.0) 10/30/18 16:30 Globulin 3.4 gm/dL (2.2-3.9) 10/30/18 16:30 Albumin/Globulin Ratio 1.2 (1.0-2.1) 10/30/18 16:30 Urine Color Yellow (YELLOW) 10/30/18 16:30 Urine Clarity Clear (Clear) 10/30/18 16:30 Urine pH 7.0 (5.0-8.0) 10/30/18 16:30 Ur Specific [place] 1.009 (1.003-1.030) 10/30/18 16:30 Urine Protein Negative mg/dL (NEGATIVE) 10/30/18 16:30 Urine Glucose (UA) Normal mg/dL (Normal) 10/30/18 16:30 Urine Ketones Negative mg/dL (NEGATIVE) 10/30/18 16:30 Urine Blood 1+ (NEGATIVE) H 10/30/18 16:30 Urine Nitrate Negative (NEGATIVE) 10/30/18 16:30 Urine Bilirubin Negative (NEGATIVE) 10/30/18 16:30 Urine Urobilinogen Normal mg/dL (0.2-1.0) 10/30/18 16:30 Ur Leukocyte Esterase Neg [place]/uL (Negative) 10/30/18 16:30 Urine WBC (Auto) 1 /hpf (0-5) 10/30/18 16:30 Urine RBC (Auto) 1 /hpf (0-3) 10/30/18 16:30 Urine Bacteria Rare (<OCC) 10/30/18 16:30 Discharge Plan - Discharge Medications Prescriptions: Cyclobenzaprine [Flexeril] 5 mg PO TID PRN #30 tab PRN Reason: Pain, Moderate (4-7) Lidocaine 5% [Lidoderm] 1 patch TOP DAILY #20 patch oxyCODONE/Acetaminophen [Percocet 5/325 mg Tab] 1 tab PO Q4H PRN #20 tab PRN Reason: Pain, Severe (8-10) - Follow Up Plan Condition: GOOD Disposition: HOME/ ROUTINE Instructions: Low Back Pain (DC), Lidocaine (Topical), Apraxia (DC), Cyclobenzaprine, Oxycodone and Acetaminophen Additional Instructions: home care/ home PT with walker for low back pain percocet/flexeril/lidoderm patch follow up with PMD in 1 week Referrals: Ellis Mesa MD [Staff Provider] -
--- NOTE | 2018-11-04 19:48 | DS ---
DISCHARGE DIAGNOSES: Low back pain, lumbar disk disease, hypertension, hyperlipidemia. HISTORY OF PRESENT ILLNESS: This is a 73-year-old female, came in with intractable low back pain, non-bearable. Pain was radiating down to the buttocks, neck pain as well. No history of injury, fall, loss of consciousness, prior history of back pain or neck pain. There is no history of polyuria, polydipsia or polyphagia. HOSPITAL COURSE: The patient was admitted to the floor and underwent MRI of the lumbar spine, which showed degenerative disk disease. The patient tolerated pain medications well, and she is for discharge with outpatient followup. VITAL SIGNS: Blood pressure 107/56, pulse 81, respiratory rate 20, temperature 98.3. LABORATORY DATA: Sodium 136, potassium 3.7, chloride 102, bicarbonate 26, BUN 15, creatinine 0.8. Urinalysis is normal. WBC is 8.2, hemoglobin 12.8, hematocrit 39, platelets 143. CONDITION UPON DISCHARGE: Stable. Ellis Mesa MD
== END 2018-11-02 17:17 | disposition home or self-care (01) ==
LOC: C.ER 14:39 → C.9E 18:43 → C.3T 20:36
PROVIDERS: ADMIT Internal Medicine; ATTEND Internal Medicine
DX: M51.16 Intervertebral disc disorders with radiculopathy, lumbar region (principal); S39.012A Strain of muscle, fascia and tendon of lower back, initial encounter; R26.9 Unspecified abnormalities of gait and mobility; I10 Essential (primary) hypertension; E78.2 Mixed hyperlipidemia; I25.10 Atherosclerotic heart disease of native coronary artery without angina pectoris; E03.9 Hypothyroidism, unspecified; K86.89 Other specified diseases of pancreas; K74.60 Unspecified cirrhosis of liver; K82.9 Disease of gallbladder, unspecified; X58.XXXA Exposure to other specified factors, initial encounter
CPT/HCPCS: 36415; 71045; 72149; 80048; 80053; 81001; 82550; 82948; 85025; 87086; 97110; 97116; 97162; 99285; G0378; G8978; G8979; J1650; Q9966

== ENCOUNTER 2019-01-04 10:06 | Outpatient (CLI) | payer MEDICARE, MEDICAID | END 2019-01-04 10:07 | disposition home or self-care (01) | LOC: C.MAMMO 10:06 ==